=== PATIENT | female | born 1980 | race Caucasian/White ===

== ENCOUNTER 2023-10-16 10:00 | Outpatient (RCR) | payer MEDICAID, SELFPAY ==
[2023-10-02 10:08] VITALS: BP 176/96; PULSE 89; RESP 16; TEMP 36.1; BMI 74.4
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
--- NOTE | 2023-10-11 09:52 | ART_ITS ---
Reason For Study: BLE EDEMA Procedure A bilateral lower extremity continuous wave Doppler with analog waveform analysis,segmental pressures,and ankle brachial indexes without exercise. Left Segmental Pressures Left brachial= 150mmHg. Left posterior tibial artery = >254mmHg. Left dorsalis pedis artery = >254mmHg. Left digit = 130 mmHg. The left posterior tibial artery waveforms are triphasic. The left dorsalis pedis waveforms are triphasic. Right Segmental Pressures Right brachial= 151mmHg. Right posterior tibial artery = >254mmHg. Right dorsalis pedis artery = >254mmHg. Right digit = 99 mmHg. The right posterior tibial artery waveforms are triphasic. The right dorsalis pedis waveforms are triphasic. Indices The right ankle brachial index by the dorsalis pedis is N/C. The right ankle brachial index by the posterior tibial artery is N/C. The right digital-brachial index is 0.66. The left ankle brachial index by the posterior tibial artery is N/C. The left ankle brachial index by the dorsalis pedis is N/C. The left digital-brachial index is 0.86. VL/Lower Ext Art Exam w/o Exercis Interpretation Summary Triphasic Doppler waveforms are noted at ankle level bilaterally. Pulse-volume recordings appear diminished at calf, ankle, and digital levels bilaterally. Resting ankle-brachi al indices could not be determined on either side due to the non-compressibility of the vasculature at ankle level bilaterally. The right digital-brachial index is mildly diminished. The left di gital-brachial index is normal. There is evidence of arterial calcification at ankle level bilaterally. There i s evidence of mild arterial occlusive disease in the right lower extremity. There is no evidence o f significant arterial occlusive disease in the left lower extremity. Ordering Physician: Fran Tran Referring Physician: FRAN TRAN WORKING MANAGER-C Performed By: Raymundo Alan RVT and Student
--- NOTE | 2023-10-11 09:52 | VDLE_ITS ---
Reason For Study: BLE Edema RIGHT LEFT CFV is compressible, spontaneous, phasic, CFV is compressible, spontaneous, phasic, competent and demonstrates normal competent, and demonstrates normal augmentation. augmentation. FV is compressible, spontaneous, phasic, FV is compressible, spontaneous, phasic, competent and demonstrates normal competent and demonstrates normal augmentation. augmentation. POP V is compressible, spontaneous, phasic, POP V is compressible, spontaneous, phasic, competent and demonstrates normal competent and demonstrates normal augmentation. augmentation. T/P Trunk is compressible. T/P Trunk is compressible. PTV is compressible. Unable to visualize PTV and Carmella V. Unable to visualize Carmella V. SFJ is competent and measures 0.95 cm. SFJ is INCOMPETENT and measures 0.88 cm. GSV proximal thigh measures 0.77 x 0.81 cm. GSV proximal thigh measures 0.65 x 0.71 cm. GSV at knee measures 0.59 x 0.65 cm. GSV at knee measures 0.71 x 0.66 cm. GSV is competent throughout. GSV INCOMPETENT throughout for greater than SSV proximal calf is competent and measures 0.5 seconds. 0.35 cm. SSV proximal calf is competent and measures 0.36 x 0.36 cm. Procedure This is a venous duplex using B-mode, color flow and spectral Doppler. Exam performed in department. The exam was diagnostic. Limited views were obtained. The study was technically difficult. VL/Venous Duplex US - Lauri Extrem Interpretation Summary Deep veins of the lower extremities are bilaterally patent and compressible seg mentally. There is no evidence of deep vein thrombosis on either side. Valvular competence appears in tact within the proximal deep venous systems bilaterally. The great saphenous veins appear bila terally patent and compressible segmentally. The right sapheno-femoral junction is incompetent . T he left sapheno- femoral junction is competent . The right great saphenous vein appears segmenta lly incompetent. The left great saphenous vein appears segmentally competent. Small saphenous veins are patent and competent bilaterally. The deep veins of the calf were not visualized on either side. Ordering Physician: Kady Marshall Referring Physician: Anna Marie Cosby Performed By: Raymundo Alan RVT and Student
[2023-10-16 09:57] VITALS: BP 175/94; PULSE 79; RESP 22; TEMP 36.4; BMI 74.4
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
== END 2023-10-31 23:59 | disposition home or self-care (01) ==
LOC: WC 10:00
PROVIDERS: PCP Nurse Practitioner Family; Referring Provider Nurse Practitioner Family; Visit Provider Nurse Practitioner Family
DX: I89.0 Lymphedema, not elsewhere classified (principal); E66.01 Morbid (severe) obesity due to excess calories; Z68.45 Body mass index [BMI] 70 or greater, adult; R60.0 Localized edema; R26.2 Difficulty in walking, not elsewhere classified; B37.2 Candidiasis of skin and nail; L30.4 Erythema intertrigo; M79.89 Other specified soft tissue disorders
CPT/HCPCS: G0463; 93923; 93970; 99204; 99213; 99214

== ENCOUNTER → 2023-10-31 | Outpatient (CLI) | payer MEDICAID, SELFPAY ==
--- NOTE | 2023-10-31 09:12 | BI_ITS ---
MAMMOGRAPHY - BILATERAL SCREENING REASON FOR EXAM: Female, 43 years old. Routine annual screening examination. PERTINENT HISTORY: Non-contributory. TECHNIQUE: Digital bilateral breast zafar (3D mammographic acquisition) in the CC and MLO projections. 2-D mediolateral oblique (MLO) and craniocaudad (CC) views of both breasts were obtained. CAD: Full Field Digital Mammography with Computer Added Detection was performed. COMPARISON: Comparison is made with prior outside examination dated October 15, 2020. FINDINGS: Breast Composition: There are scattered areas of fibroglandular density. There are no dominant masses or suspicious calcifications. No other significant abnormalities are identified. There has been no significant change since the prior study. BI/SCRN MAMM (CAD)W/ZAFAR BILAT IMPRESSION: Stable bilateral screening mammogram. Yearly follow-up mammogram recommended. (A) ASSESSMENT CATEGORY: BIRADS Category 1: Negative. A letter regarding these results will be sent to the patient by the facility within 30 days. Approximately 10% of breast cancers are not detected by mammography. A normal mammogram should not delay biopsy of a clinically suspicious abnormality. [id number] Electronically Signed: Heber Odom MD at 14:36 EDT ,
== END | disposition home or self-care (01) ==
LOC: OPBI 09:10
PROVIDERS: PCP Nurse Practitioner Family; Referring Provider Nurse Practitioner Family; Visit Provider Nurse Practitioner Family
DX: Z12.31 Encounter for screening mammogram for malignant neoplasm of breast (principal)
CPT/HCPCS: 77063; 77067

== ENCOUNTER 2023-12-11 10:14 | Outpatient (RCR) | payer MEDICAID, SELFPAY ==
[2023-11-01 00:09] VITALS: BP 175/94; PULSE 79; RESP 22; TEMP 36.4; BMI 74.4
[2023-12-11 10:02] VITALS: BP 167/88; PULSE 72; RESP 22; TEMP 35.9; BMI 74.4
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
== END 2023-12-13 14:51 | disposition home or self-care (01) ==
LOC: WC 10:14
PROVIDERS: PCP Nurse Practitioner Family; Referring Provider Nurse Practitioner Family; Visit Provider Nurse Practitioner Family
DX: R60.0 Localized edema (principal); E66.01 Morbid (severe) obesity due to excess calories; Z68.45 Body mass index [BMI] 70 or greater, adult; I89.0 Lymphedema, not elsewhere classified; B37.2 Candidiasis of skin and nail; L30.4 Erythema intertrigo
CPT/HCPCS: 99213; G0463

== ENCOUNTER → 2024-09-13 | Outpatient (CLI) | payer MEDICAID, SELFPAY | END | disposition home or self-care (01) | LOC: SL 19:59 | PROVIDERS: PCP Nurse Practitioner Family; Referring Provider Nurse Practitioner Family; Visit Provider Nurse Practitioner Family | DX: G47.10 Hypersomnia, unspecified (principal); E66.01 Morbid (severe) obesity due to excess calories; I10 Essential (primary) hypertension | CPT/HCPCS: 95810 ==

== ENCOUNTER → 2024-10-31 | Outpatient (CLI) | payer MEDICAID, SELFPAY ==
--- NOTE | 2024-10-31 09:52 | BI_ITS ---
EXAM: SCRN MAMM (CAD)W/ZAFAR BILAT DATE: 10/31/2024 CLINICAL HISTORY: F, Age 44 y/o , SCREENING BREAST CANCER RISK ASSESSMENT: Has not been calculated. TECHNIQUE: Bilateral screening digital breast tomosynthesis with 2D and 3D images. Computer aided detection. COMPARISON: Prior exam(s) dated 10/31/2023. FINDINGS: TISSUE DENSITY: The breast tissue is composed of scattered area of fibroglandular density. Bilateral Breast Mammographic Findings: There are no suspicious masses, suspicious clustered microcalcifications, architectural distortion or secondary signs of malignancy identified in either breast. Benign-appearing round microcalcifications are seen in both breasts. BI/SCRN MAMM (CAD)W/ZAFAR BILAT IMPRESSION: OVERALL FINAL ASSESSMENT: BIRADS 2 BENIGN FINDING RECOMMENDATION: Routine annual follow-up in 1 Year A letter with findings and recommendations will be mailed to the patient. Reading Location: [id number]
== END | disposition home or self-care (01) ==
PROVIDERS: PCP Nurse Practitioner Family; Referring Provider Nurse Practitioner Family; Visit Provider Nurse Practitioner Family
DX: Z12.31 Encounter for screening mammogram for malignant neoplasm of breast (principal)
CPT/HCPCS: 77063; 77067

== ENCOUNTER → 2024-11-08 | Outpatient (CLI) | payer MEDICAID, SELFPAY | END | disposition home or self-care (01) | LOC: SL 20:10 | PROVIDERS: PCP Nurse Practitioner Family | DX: G47.33 Obstructive sleep apnea (adult) (pediatric) (principal) | CPT/HCPCS: 95811 ==

== ENCOUNTER → 2025-02-03 | Outpatient (CLI) | payer MEDICAID, SELFPAY ==
[2025-02-03 13:22] LABS: Hematocrit 36.3 % (37-47); Hemoglobin 11.6 g/dL (12.0-15.0); Immature Granulocytes Count 0.010 X10^3/uL (0.0-0.0); Mean Corp Hgb Conc 32.0 g/dL (32-36); Mean Corpuscular Volume 91.9 fL (81-99); Mean Platelet Vol. 9.3 fl (6.2-12.0); NRBC Flagged by Analyzer 0 % (0-5); Platelet Count 386 K/mm3 (150-450); RBC Distribution Width CV 13.2 % (11.6-14.6); RBC Distribution Width SD 44.0 fl (35.1-43.9); Red Blood Count 3.95 M/mm3 (4.2-5.4); White Blood Count 6.1 K/mm3 (4.4-11.0)
[2025-02-03 13:23] LABS: AST(SGOT) 16 U/L (<=31); Alanine Aminotransfer ALT/SGPT 23 U/L (<=34); Albumin, Serum 3.9 g/dL (3.5-5.0); Alkaline Phosphatase 67 U/L (35-104); Anion Gap 11 (5-15); BUN 17 mg/dL (4-19); BUN/Creat Ratio 24.5 RATIO (10-20); Calcium,Total 9.3 mg/dL (7.6-11.0); Carbon Dioxide 22.5 mmol/L (21.0-32.0); Chloride 103 mmol/L (98-108); Cholesterol 198 mg/dL (<=200); Globulin 4.2 g/dL (2.2-4.2); Glucose 100 mg/dL (70-99); Low Density Lipoprotein Calc. 138 mg/dL; Magnesium 2.0 mg/dL (1.5-2.2); Potassium 4.4 mmol/L (3.3-5.1); Triglycerides 69 mg/dL; Very Low Density Lipoprotein 14 mg/dL (5-40); cholesterol:hdl ratio screen 4.25
--- OUTSIDE RECORDS SUMMARY | 2025-02-03 21:22 | XMS RPT_ITS | CCD ---
Author Organization [facility] Care Team Providers Care Cornetist Name Role Phone Linda Godoy Primary Care Provider [phone] GERBER GORDON MD Attending Unavailable GERBER GORDON MD Consulting Unavailable GERBER GORDON MD Primary Care Unavailable GERBER GORDON MD Admitting Unavailable PROVIDER, UNKNOWN Consulting Unavailable PROVIDER, UNKNOWN Consulting Unavailable GERBER GORDON MD Primary Care Unavailable GERBER GORDON MD Admitting Unavailable GERBER GORDON MD Attending Unavailable GERBER GORDON MD Primary Care Unavailable GERBER GORDON MD Admitting Unavailable GERBER GORDON MD Attending Unavailable ARRON CLEMENS MD Attending Unavailable ARRON CLEMENS MD Primary Care Unavailable ERIC CARVALHO Consulting Unavailable ARRON CLEMENS MD Admitting Unavailable PROVIDER, UNKNOWN Consulting Unavailable PROVIDER, UNKNOWN Consulting Unavailable PROVIDER, UNKNOWN Consulting Unavailable ALVERTO LOPEZ Primary Care Unavailable ALVERTO LOPEZ Admitting Unavailable ALVERTO LOPEZ Attending Unavailable MAIA IVAN MD, DR ERIC Strauss Primary Care Physic jaden Linda Godoy MD Primary Care Provider Joanna BANKING SUPERVISOR.CLOTH PACKER, Kady Unavailable Zander COMPOSITION FLOOR LAYER, COMPOSITION FLOOR LAYER-Jakob Thrasher Primary Care Provider Zander COMPOSITION FLOOR LAYER, COMPOSITION FLOOR LAYER-Jakob Thrasher Referring Provider Joanna COMPOSITION FLOOR LAYER, KENNY-Jakob Valero Attending Provider [phone] Joanna COMPOSITION FLOOR LAYER, KENNY-Jakob Valero Other Provider [phone] Joanna COMPOSITION FLOOR LAYER, COMPOSITION FLOOR LAYER-C Kady Valero Referring Provider [phone] ZANDER TAPIA, ANNA MARIE Attending Unava karolyn CARVALHO III, MD, DR ERIC Strauss Primary Care Sandra vailable ZANDER TAPIA, ANNA MARIE Attending Unapolly CARVALHO III, MD, DR ERIC Strauss Primary Care Sandra vailable SAID, MOHEB Attending Unavailable Unavailable Primary Care Provider Unavailabl e REFERRING, PHY WO ID Attending Unavailable MAIA IVAN MD, DR ERIC Strauss Primary Care Sandra vailable Zander COMPOSITION FLOOR LAYER-C, Anna Marie Primary Care Provider Zander COMPOSITION FLOOR LAYER-C, Anna Marie Attending Provider Zander COMPOSITION FLOOR LAYER-C, Anna Marie Referring Provider Stalin COMPOSITION FLOOR LAYER-C, Berenice White Attending Provider Beam COMPOSITION FLOOR LAYER-C, Todburochellen Attending Provider Beam COMPOSITION FLOOR LAYER-C, Aries Referring Provider Stalin COMPOSITION FLOOR LAYER-CBerenice Other Provider Zander COMPOSITION FLOOR LAYER-C, Anna Marie Primary Care Provider Zander COMPOSITION FLOOR LAYER-C, Anna Marie Referring Provider Zander COMPOSITION FLOOR LAYER-C, Anna Marie Attending Provider [facility], [facility] Primary Care UnavailBerenice Flores Consulting Unavailable Beam C, Aries Attending [facility]available [facility] Unavailable [facility] Primary Care Unavailabl e Zander [facility], Anna Marie Attending Unavailabl e Zander [facility], Anna Marie Referring Unavailabl e Zander C, [facility] Primary Care Unavailabl e Zander [facility], Anna Marie Attending Unavailabl e Zander C, Anna Marie Referring Unavailabl e Zander C, [facility] Primary Care UnavailBerenice Flores Attending Unavailable Zander [facility], Anna Marie Referring UnavailBerenice Flores Attending Unavailable [facility], [facility] Referring Unavailabl e Zander C, [facility] Primary Care Unavailabl e Medications Current Medications Medication Drug Class(es) Dates Sig (Normalized) Sig (Original) ibuprofen 200 mg oral capsule (6 sources) Nonsteroidal Anti-inflammatory Drug Start: 10-02-2023 take 2 capsules by mouth every eight hours as needed for pain Ibuprofen 200 mg capsule Active 400 mg PO Q8H as needed for pain October 02, 2023 12:00am Start: 10-02-2023 Ibuprofen caps ule Take 400 mg by mouth. 10/02/2023 Active levothyroxine sodium 0.05 mg oral capsule (8 sources) l-Thyroxine Start: 11-15-2023 take 1 capsule by mouth once daily Levothyroxine 50 mcg capsule Active 50 ug PO DAILY November 15, 2023 12:00am Start: 09-16-2016 Synthroid 100 mcg (0.1 mg) oral tablet Dose : 100 mcg = 1 tab(s), Oral, qDayAC, 0 Refill(s) Start Date: 09/16/16 Status: Ordered Repeat number: 1 take 1 tablet by leana th once daily before breakfast levothyroxine (Synthroid, Levoxyl) 100 MCG tablet Take 100 mcg by mouth every morning (before breakfast). Active lisinopril 10 mg oral tablet (2 sources) Angiotensin Converting Enzyme Inhibitor Start: 10-29-2024 take 1 tablet by mouth once daily Lisinopril 10 mg tablet Active 10 mg PO DAILY October 29, 2024 12:00am Blood pressure nystatin 900026 unt/ml topical cream (7 sources) Polyene Antifungal Start: 12-19-2023 nystatin (Mycostatin) 603638 UNIT/GM powder APPLY POWDER TOPICALLY TO AFFECTED AREA TWICE DAILY UNDER BILATERAL BREAST 12/19/2023 Active Start: 10-04-2023 End: 01-29-2025 Nystatin 100,000 unit/gram c ream Active 1 NMA TOPICAL TWICE A DAY as needed January 29, 2025 11:10am Apply to affected areas twice daily. Start: 10-04-2023 Nystatin Activ e 1 APPLIC TOPICAL TWICE A DAY October 04, 2023 12:00am Apply to affected areas twice daily. Problems Active Problems Problem Classification Problem Date Documented Date Episodic/Chronic Abdominal pain (2 sources) Right upper quadrant pain; Translations: [Right upper quadrant pain] Onset: 08-17-2020 Episodic Anxiety disorders (2 sources) Posttraumatic stress disorder 09-16-2016 Chronic Heart valve disorders (2 sources) Heart murmur; Translations: [Cardiac murmur, unspecified] 01-29-2025 Episodic Mycoses (7 sources) Candidiasis of skin; Translations: [Candidiasis of skin and nail] 10-05-2023 Episodic Other inflammatory condition of skin (5 sources) Intertrigo; Translations: [Erythema intertrigo] 10-05-2023 Episodic Other inflammatory condition of skin (2 sources) Erythema intertrigo; Translations: [Other specified erythematous conditions] 10-31-2023 Episodic Other lower respiratory disease (5 sources) Hypoxemia; Translations: [Hypoxemia] 10-29-2024 Episodic Other nutritional; endocrine; and metabolic disorders (3 sources) Morbid (severe) obesity due to excess calories; Translations: [Morbid obesity] Onset: 09-16-2020 10-31-2023 Chronic Other nutritional; endocrine; and metabolic disorders (2 sources) Obesity 09-16-2016 Chronic Other nutritional; endocrine; and metabolic disorders (9 sources) Morbid obesity; Translations: [Morbid (severe) obesity due to excess calories] 10-05-2023 Chronic Other screening for suspected conditions (not mental disorders or infectious disease) (1 source) Encounter for screening mammogram for malignant neoplasm of breast; Translations: [Encounter for screening mammogram for malignant neoplasm of breast] Onset: 11-05-2024 Episodic Residual codes; unclassified (5 sources) Obstructive sleep apnea syndrome; Translations: [Obstructive sleep apnea (adult) (pediatric)] 10-29-2024 Chronic Residual codes; unclassified (1 source) Obstructive sleep apnea (adult) (pediatric); Translations: [Obstructive sleep apnea (adult) (pediatric)] Onset: 11-13-2024 Chronic Residual codes; unclassified (1 source) Hypersomnia, unspecified; Translations: [Hypersomnia, unspecified] Onset: 09-24-2024 Chronic Residual codes; unclassified (5 sources) Bilateral lower limb edema; Translations: [Localized edema] 10-05-2023 Episodic Residual codes; unclassified (13 sources) Localized edema; Translations: [Lipedema of lower extremity] 10-05-2023 Episodic Thyroid disorders (11 sources) Hypothyroidism, unspecified; Translations: [Hypothyroidism] Onset: 08-17-2020 09-16-2016 Chronic Unclassified (3 sources) SUMMARY Onset: 09-17-2016 09-17-2016 Unclassified (2 sources) New Patient; Translations: [New Patient] Onset: 04-03-2024 Past or Other Problems Problem Classification Problem Date Documented Da te Episodic/Chronic Biliary tract disease (8 sources) Gallstone; Translations: [Acute cholecystitis] Onset: 09-17-2016 Resolved: 09-19-2016 09-19-2016 Episodic Results Test Name Value Interpretation Reference Range Facility Pulmonary Visit Reporton Pulmonary Visit Report [facility] [address] [place] [address] OFFICE VISIT Date of Service: 01/29/25 MR#: [id number] Acct: [id number] Name: MERARI DUEÑAS Rep #: [id number] : 1980 Provider: Berenice Gant NP Age/Sex: 44/F Location: [facility].PMW Status: Signed Assessment and Plan Assessment and Plan (1) Obstructive sleep apnea: Status: Acute Comment: CPAP 15 cm Plan: Patient is using and benefiting from CPAP 15 cm. Her apnea is controlled. I have recommended that she increase compliance with her device with a goal of at least 6 hours nightly average. I have asked her to wash her face prior to placing her mask on at night. She is to work with vendor if her mask becomes uncomfortable to consider a different style FFM. Compliance download at that time with follow-up. (2) Hypoxemia: Status: Acute Plan: Nocturnal oximetry on CPAP 15 cm prior to follow-up. (3) Lipedema of lower extremity: Status: Chronic Plan: Continue to increase compliance with pap device. (4) Morbid obesity with BMI of 70 and over, adult: Status: Acute Plan: Complicates exam, care, plan, prognosis. (5) Cardiac murmur, unspecified: Status: Acute Plan: Identified on today's exam. Follow up with PCP to consider ECHO and further work up. Plan Details Follow Up: 4-6 months (LMR) HPI HPI Comments Details: Patient is a 44-year-old female who presents today for evaluation of obstructive sleep apnea. She is ambulatory and currently on room air. The PSG from September 13, 2024 shows an AHI of 39.2 using the 4% rule and 59.8 using the 3% AASM rule. She has not working outside her home, she is currently disabled. She is a lifelong non-smoker. Her father had sleep apnea. She herself has no history of asthma. She reports that she has bad teeth . She has considered liposuction for lipedema. She reports that she is using her PAP device. She indicates that she is feeling more rested when using the device versus when she does not. She does nap on occasion. She has some dry mouth present. She denies morning headaches. She does try to now sleep in supine positioning, previously she was sleeping in side-lying positioning. She denies nocturia. ESS is 4 today. Sh She does not report shortness of breath or cough or wheeze. She denies chest pain chest tightness shortness of breath. She denies fever, chills, body aches. She gets tired when she takes a shower. She has fatigue. She needs to lay down and rest for 10-20 minutes. Documentation reviewed with patient today includes: Titration PSG from November 08, 2024 recommends a trial of CPAP 15 cm Compliance download from January 27, 2025 for the last 30 days shows 100% compliance with therapy, using the device 5 hours and 32 minutes nightly average. She is using CPAP 15 cm. There is air leak identified. AHI is 2.9. Intake Vital Signs 10/29/24 07:50 01/29/25 08:34 Height 5 ft 10 in 5 ft 10 in Weight: 550 lb BMI 78.9 BP 126/77 H Blood Pressure Location Rt radial Position Sitting Respiration 20 H Pulse 83 Pulse Source Monitor Temp 97.4 F L Temperature Source Temporal Artery Pulse Oximetry (%) 96 Oxygen Delivery Method room air Intake Visit Reasons: 3 M FU Compliance Specialist Required: No DME Vendor: [employer] Accompanied by: Self Is patient in pain?: No Allergies No Known Allergies Allergy (Verified 01/29/25 11:10) Medications ???Medication ???Instructions ???Recorded ???Confirmed ???Type ibuprofen 200 mg capsule 400 mg PO Q8H PRN pain 10/02/23 History levothyroxine 50 mcg capsule 50 mcg PO DAILY 11/15/23 01/29/25 History lisinopril 10 mg tablet 10 mg PO DAILY Blood pressure 10/0201/29/25 History nystatin 100,000 unit/gram topical 1 applic topical BID PRN 5 History cream PFSH Medical History Hypothyroidism Surgical History H/O dilation and curettage History of delivery Family History Father Diabetes Heart disease Hypertension Bipolar 1 disorder Mother Diabetes Hypertension COPD (chronic obstructive pulmonary disease) Social History household members: significant other number of children: 2 current occupational status: unemployed and disabled Smoking Status: Never smoker alcohol intake: never substance use type: does not use what type of physical activity do you participate in: none Questionnaire Chase Sleepiness Scale Chase Sleepiness Scale Sitting and readin = Slight chance of dozing Watching TV: 1 = Slight chance of dozing Sitting inactive in public places such as t (more content not included)... Normal [facility] SCRN MAMM (CAD)W/ZAFAR BILATo n 10-31-2024 SCRN MAMM (CAD)W/ZAFAR BILAT [facility] Imaging Services [address] [place] [address] SCRN MAMM (CAD)W/ZAFAR BILAT MR#: [id number] Acct: [id number] Name: MERARI DUEÑAS Rep #: [id number] : 1980 F 44 From: Marjan Yung PCP: SACHI Curran, COMPOSITION FLOOR LAYER-C Status: REG CLI Study: SCRN MAMM (CAD)W/ZAFAR BILAT Date of Exam: 07/27 Exam# [id number] Ordering Dr: Anna Marie Cosby COMPOSITION FLOOR LAYER-C EXAM: SCRN MAMM (CAD)W/ZAFAR BILAT DATE: 10/31/2024 CLINICAL HISTORY: F, Age 44 y/o , SCREENING BREAST CANCER RISK ASSESSMENT: Has not been calculated. TECHNIQUE: Bilateral screening digital breast tomosynthesis with 2D and 3D images. Computer aided detection. COMPARISON: Prior exam(s) dated 10/31/2023. FINDINGS: TISSUE DENSITY: The breast tissue is composed of scattered area of fibroglandular density. Bilateral Breast Mammographic Findings: There are no suspicious masses, suspicious clustered microcalcifications, architectural distortion or secondary signs of malignancy identified in either breast. Benign-appearing round microcalcifications are seen in both breasts. BI/SCRN MAMM (CAD)W/ZAFAR BILAT IMPRESSION: OVERALL FINAL ASSESSMENT: BIRADS 2 BENIGN FINDING RECOMMENDATION: Routine annual follow-up in 1 Year A letter with findings and recommendations will be mailed to the patient. Reading Location: [facility] CC: [facility] MERLYN Cosby Weather Anchor: Signed Normal [facility] Pulmonary Visit Reporton Pulmonary Visit Report [facility] [address] [place] [address] OFFICE VISIT Date of Service: 10/29/24 MR#: [id number] Acct: [id number] Name: MERARI DUEÑAS Rep #: [id number] : 1980 Provider: Berenice Gant NP Age/Sex: 44/F Location: [facility].PMW Status: Signed Assessment and Plan Assessment and Plan (1) Obstructive sleep apnea: Status: Acute Plan: Due to the severity of the obstructive sleep apnea with associated hypoxemia I have recommended that the patient undergo a titration study at this time. The pathophysiology of obstructive sleep apnea was reviewed at length with patient today. Understands importance for treating sleep apnea. I have recommended a follow-up in 3 months for which the patient will have had a titration study and will be set up on PAP therapy. I recommended compliance download at that time with follow-up. (2) Hypoxemia: Status: Acute Plan: Await response to treatment with PAP therapy, consider nocturnal oximetry on follow-up. (3) Lipedema of lower extremity: Status: Chronic Plan: The patient is carrying a higher risk for obstructive sleep apnea with this diagnosis. There is correlation between these disease processes. (4) Morbid obesity with BMI of 70 and over, adult: Status: Acute Plan: Complicates exam, care, plan, prognosis. Orders: Orders Polysomnography with PAP Today G47.33 - Obstructive sleep apnea (adult) (pediatric) Plan Details Follow Up: 3 Months (LMR) HPI HPI Comments Details: Patient is a 44-year-old female who presents today for evaluation of obstructive sleep apnea. She is ambulatory and currently on room air. She underwent a PSG due to complaints of hypersomnia, snoring, witnessed gasping for air. Her STOP- BANG was 6. She does follow with Anna Marie Cosby as her PCP. Comorbid conditions include lipedema, morbid obesity, hypothyroidism. The PSG from September 13, 2024 shows an AHI of 39.2 using the 4% rule and 59.8 using the 3% AASM roll. Also with no was a mean oxyhemoglobin saturation during the study at 90% and 48.6 minutes below 88%. She has not working outside her home, she is currently disabled. She is a lifelong non-smoker. Her father had sleep apnea. She herself has no history of asthma. She reports that she has bad teeth . She has consider liposuction for lipedema. She does sleep in side-lying positioning. She goes to bed at 11 PM and awakens at 5 AM to get her daughter ready for school. She will then go back to sleep for a few hours in the morning. ESS is 5 today. She does not report shortness of breath or cough or wheeze. She denies chest pain chest tightness shortness of breath. She denies fever, chills, body aches. Intake Vital Signs 10/02/23 10:08 10/29/24 07:50 Height 5 ft 10 in 5 ft 10 in Weight: 545 lb BMI 78.2 BP 120/76 Blood Pressure Location Rt radial Position Sitting Respiration 20 H Pulse 79 Pulse Source Monitor Temp 97.2 F L Temperature Source Temporal Artery Pulse Oximetry (%) 99 Oxygen Delivery Method room air Intake Visit Reasons: Sleep problems Chief Complaint: establish care Compliance Specialist Required: No DME Vendor: n/a Accompanied by: Is patient in pain?: No Allergies No Known Allergies Allergy (Verified 10/29/24 11:15) Medications ???Medication ???Instructions ???Recorded ???Confirmed ???Type ibuprofen 200 mg capsule 400 mg PO Q8H PRN pain 10/02/23 History nystatin 100,000 unit/gram topical 1 applic topical BID 14 days #30 10/04/23 10/29/24 Rx cream grams levothyroxine 50 mcg capsule 50 mcg PO DAILY 11/15/23 10/29/24 History lisinopril 10 mg tablet 10 mg PO DAILY Blood pressure 10/0210/29/24 History PFSH Medical History Hypothyroidism Surgical History H/O dilation and curettage History of delivery Family History Father Diabetes Heart disease Hypertension Bipolar 1 disorder Mother Diabetes Hypertension COPD (chronic obstructive pulmonary disease) Social History (Updated 10/29/24 @ 11:19 by Estelle Bragg) household members: significant other number of children: 2 current occupational status: unemployed and disabled Smoking Status: Never smoker alcohol intake: never substance use type: does not use what type of physical activity do you participate in: none Review of Systems Resp Respiratory: Yes as per HPI Exam Const Constitutional: Positive conversant, cooperative, in no acute respiratory distress and obese (Morbid); Negative ill appearing Head Head: Yes normocephalic and Yes atraumatic Eyes Eye: Positive clear conjunctiva (more content not included)... Normal [facility] XR KNEE 1 OR 2 VIEWS RIGHTon 08-05-2024 XR KNEE 1 OR 2 VIEWS RIGHT ORIGINAL EXAMINATION: XR right knee AP and cross-table lateral two views 08/02/2024 1:12 pm COMPARISON: None HISTORY: ORDERING SYSTEM PROVIDED HISTORY: Reason for Exam: RIGHT KNEE PAIN, FINDINGS: No acute fracture, dislocation, lytic process or periosteal reaction is seen in the visualized bones and joints. No erosive type of arthritis. No periarticular soft tissue calcification. There is early osteoarthritis without joint space narrowing or significant joint effusion. IMPRESSION: No acute skeletal abnormality is seen. . Early osteoarthritis. Interpreted by: Simeon Marrero MD Preliminary Report By: Simeon Marrero MD Electronically signed By Simeon Marrero MD Dictated Date: 08/05/2024 3:44:36 PM Prelim Date: 08/05/2024 3:44:59 PM Sign Date: 08/05/2024 3:44:59 PM Ordering Provider: NISREEN REFERRING [facility] Office Visiton 04-03-2024 Follow-up visit [id number] Ashlee Dueñas 1980 F Date Provider Department Center 04/03/2024 [id number] None No family history on file Level of Service:09374 [place] OFFICE/OUTPATIENT NEW MODERATE MDM 45 MINUTES Reason for Visit and Comments: New Patient [542] - Lymphedema [facility] Progress Noteon 04-03-2024 Progress Note Department of Plasti c Surgery - Adult Attending Consult Note Reason for Consult: Severe lipedema Requesting Physician: Self-referral CHIEF COMPLAINT: Morbid obesity with severe lipedema History Obtained From: patient HISTORY OF PRESENT ILLNESS: The patient is a 43 y.o. female who presents with significant history of morbid obesity with a current Body mass index is 78.63 kg/m?. Patient is presenting with extensive lipedema involving bilateral buttock area and the entire bilateral lower extremity which imposing significant weight burden on the patient causing bilateral knee and hip pain as well as lower back pain. This is also affecting her ability to walk and exercise. Patient is presenting today seeking surgical intervention in the form of liposuction/excision of her lipedema tissue of the bilateral thigh which is the area of current concern. Past Medical History: Past Medical History: Diagnosis Date Hypothyroidism Lipedema Past Surgical History: Past Surgical History: Procedure Laterality Date SECTION, CLASSIC x2 DILATION AND CURETTAGE OF UTERUS missed AB Current Medications: Current Outpatient Medications Medication Instructions Ibuprofen 400 mg, Oral levothyroxine (SYNTHROID, LEVOXYL) 100 mcg, Oral, Daily before breakfast nystatin (Mycostatin) 109595 UNIT/GM powder APPLY POWDER TOPICALLY TO AFFECTED AREA TWICE DAILY UNDER BILATERAL BREAST Allergies: Patient has no known allergies. Social History: Social History Socioeconomic History Marital status: Life Partner Spouse name: Not on file Number of children: Not on file Years of education: Not on file Highest education level: Not on file Occupational History Not on file Tobacco Use Smoking status: Never Smokeless tobacco: Never Substance and Sexual Activity Alcohol use: Never Drug use: Not on file Sexual activity: Not on file Other Topics Concern Not on file Social History Narrative Not on file Social Determinants of Health Financial Resource Strain: Not on file Food Insecurity: Not on file Transportation Needs: Not on file Physical Activity: Not on file Stress: Not on file Social Connections: Not on file Intimate Partner Violence: Not on file Housing Stability: Not on file Family History: No family history on file. REVIEW OF SYSTEMS: CONSTITUTIONAL: negative for fevers, chills, sweats and fatigue EYES: negative for dipolpia or acute vision loss. RESPIRATORY: negative for dry cough, cough with sputum, dyspnea, wheezing and chest pain CARDIOVASCULAR: negative for chest pain, dyspnea, palpitations, syncope GASTROINTESTINAL: negative for nausea, vomiting, change in bowel habits, diarrhea, constipation and abdominal pain EXTREMITIES: negative for edema MUSCULOSKELETAL: negative for muscle weakness SKIN: negative for itching or rashes. BEHAVIOR/PSYCH: negative for poor appetite, increased appetite, decreased sleep and poor concentration PHYSICAL EXAM: VITALS: BP 136/83 Pulse 71 Wt (!) 548 lb (249 kg) CONSTITUTIONAL: awake, alert, cooperative, no apparent distress, and appears stated age EYES: PERRLA, EOMI, no signs of occular infection LUNGS: No increased work of breathing, good air exchange, clear to auscultation bilaterally, no crackles or wheezing CARDIOVASCULAR: Normal apical impulse, regular rate and rhythm, normal S1 and S2, no S3 or S4, and no murmur noted ABDOMEN: Soft, nontender nondistended. Severe lipedema affecting bilateral buttock, bilateral thigh and leg area with secondary lymphedema, stage II. EXTREMITIES: no signs of clubbing or cyanosis. MUSCULOSKELETAL: negative for flaccid muscle tone or spastic movements. SKIN: gross examination reveals no signs of rashes, or diaphoresis. NEURO: Cranial nerves II-XII grossly intact. No signs of agitated mood. CBC: No results found for: WBC, RBC, HGB, HCT, MCV, MCH, MCHC, RDW, PLT, MPV BMP: No results found for: NA, K, CL, CO2, BUN, CREATININE, CALCIUM, LABGLOM, GLUCOSE, GLU Hepatic Function Panel: No results found for: ALKPHOS, ALT, AST, PROT, BILITOT, BILIDIR Data- Radiology Review: Not applicable IMPRESSION/RECOMMENDAT IONS: Diagnosis: 1-morbid obesity 2-severe bilateral lower extremity lipedema The Patients EMR report has been reviewed Treatment of patient's lipedema and hence secondary lymphedema is mainly by targeting her morbid obesity. Patient needs extensive weight loss which can be achieved with 1-dietary modification by limiting caloric intake, having 3 balanced meals yet limiting the amount significantly 2-exercise, concentrating on endurance/muscle building exercises in the form of weightlifting, biking against resistance and walking uphill against resistance 3-considering weight loss surgery. If the patient happens to achieve significant weight loss, she will develop severe acquired generalized lipod (more content not included)... Normal [facility] FT4on 01-22-2024 Free T4 [Mass/Vol] 0.94 ng/dL Normal 0.76-1.46 [facility] ([place]) Comment on above: Performed By: #### F T4, TSH #### [facility] [address] [address] HIGH RISK HUMAN PAPILLOMA DIANA (HPV), PCR FOR DETECTION AND GENOTYPINGon 01-22-2024 HPV 16 Ag Ql (Unsp spec) Not detected Normal Not detected [facility] Comment on above: Order Comment: Speci men Type: FLUID SPECIMEN Ordering Facility: [facility] Address: [address] [place] [address] Performed By: #### L [id number], HPVHRT #### [facility] CLIA [id number] [address] [place] [address] [place] HPV 18 Ag Ql (Unsp spec) Not detected Normal Not detected [facility] Comment on above: Order Comment: Speci men Type: FLUID SPECIMEN Ordering Facility: [facility] Address: [address] [place] [address] Performed By: #### L [id number], HPVHRT #### [facility] CLIA [id number] [address] [place] [address] [place] HPV 31+33+35+39+45+51+52+ 56+58+59+66+68 DNA MARYSOL+probe Ql (Cvx) Not detected Normal Not detected [facility] Comment on above: Order Comment: Speci men Type: FLUID SPECIMEN Ordering Facility: [facility] Address: [address] [place] [address] Result Comment: High Risk HPV Other Type includes HPV types 31, 33, 35, 39, 45, 51, 52, 56, 58, 59, 66 and 68. Performed By: #### L [id number], HPVHRT #### [facility] CLIA [id number] [address] [place] [address] [place] PAP TESTon 01-22-2024 ADEQUACY Satisfactory for interpretation. Normal [facility] Comment on above: Order Comment: Speci men Type: FLUID SPECIMEN Ordering Facility: [facility] Address: [address] [place] [address], [place] [address] Performed By: #### L [id number], HPVHRT #### [facility] CLIA [id number] [address] [place] [address] [place] CASE REPORT Normal [facility] Comment on above: Order Comment: Speci men Type: FLUID SPECIMEN Ordering Facility: [facility] Address: [address] [place] [address], [place] [address] Result Comment: Gyne cologic Cytology Report Case: [id number] Authorizing Provider: Anna Marie Cosby NP Collected: 01/22/2024 11:30 AM Ordering Location: [facility] Received: 01/23/2024 07:54 AM [facility] First Screen: Lisset, Liss, CT, ASCP Specimen: Pap Test, ThinPrep, Cervix Performed By: #### L [id number], HPVHRT #### [facility] CLIA [id number] [address] [place] [address] [place] CLINICAL HISTORY, CYTOLOGY, WINDOWS CONSULTANT Routine Exam Normal [facility] Comment on above: Order Comment: Speci men Type: FLUID SPECIMEN Ordering Facility: [facility] Address: [address] [place] [address], [place] [address] Result Comment: Prev ious pap=10/23/2023 w/ inconclusive result Performed By: #### L [id number], HPVHRT #### [facility] CLIA [id number] [address] [place] [address] [place] FINAL PERFORMING LAB Normal [facility] Comment on above: Order Comment: Speci men Type: FLUID SPECIMEN Ordering Facility: [facility] Address: [address] [place] [address], [place] [address] Result Comment: Tech nical component, wind turbine technician screening performed at [facility] [address] CLIA# [id number] Diagnostic interpretation performed at [facility], [address] [facility] [address] CLIA# [id number] Silviculture Professor: Kong Chavira M.D. Performed By: #### L [id number], HPVHRT #### [facility] CLIA [id number] [address] [place] [address] [place] HPV REFLEX Yes HPV Normal [facility] Comment on above: Order Comment: Speci men Type: FLUID SPECIMEN Ordering Facility: [facility] Address: [address] [place] [address], [place] [address] Performed By: #### L [id number], HPVHRT #### [facility] CLIA [id number] [address] [place] [address] [place] INTERPRETATION, CYTOLOGY, WINDOWS CONSULTANT Normal [facility] Comment on above: Order Comment: Speci men Type: FLUID SPECIMEN Ordering Facility: [facility] Address: [address] [place] [address] Result Comment: Nega tive for intraepithelial lesion or malignancy. Performed By: #### L [id number], HPVHRT #### [facility] CLIA [id number] [address] [place] [address] [place] LMP [December 2023 Normal [facility] Comment on above: Order Comment: Speci men Type: FLUID SPECIMEN Ordering Facility: [facility] Address: [address] [place] [address] Performed By: #### L [id number], HPVHRT #### [facility] CLIA [id number] [address] [place] [address] [place] PAP DISCLAIMER COMMENT The Pap Smear is a screening test for cervical cancer. False negative results occur with all screening tests, emphasizing the need for rescreening at recommended intervals, and clinical correlation. Normal [facility] Comment on above: Order Comment: Speci men Type: FLUID SPECIMEN Ordering Facility: [facility] Address: [address] [place] [address] Performed By: #### L [id number], HPVHRT #### [facility] CLIA [id number] [address] [place] [address] PAP REGIONAL ENGINEER COMMENT This specimen has be en analyzed by the ThinPrep Imaging System, an automated imaging and review system, which assists the laboratory in evaluating cells on ThinPrep Pap tests. Following automated imaging, selected evans from every slide are reviewed by a wind turbine technician. Normal [facility] Comment on above: Order Comment: Speci men Type: FLUID SPECIMEN Ordering Facility: [facility] Address: [address] [place] [address], [place] [address] Performed By: #### L [id number], HPVHRT #### [facility] CLIA [id number] [address] [place] [address] OF [facility] TSHon 01-22-2024 TSH Qn 3.32 m[IU]/L Normal 0.36-3.74 [facility] ([place]) Comment on above: Performed By: #### F T4, TSH #### [facility] [id number] [place] [address] 11-01-2023 CNPN Telephone (CARDMN) MERARI DUEÑAS ([id number]) 1980 F Date Time Provider Department 11/01/23 OMAYRA GONZALEZ ([facility]) CARDMN During your visit today, we recorded the following information about you: Omayra Ryan 11/01/2023 4:55 PM Signed RP 1ST CALL. Patient is seeking care locally with Dr. Castro. Case closed. Allergies As of Date: 11/01/2023 (No Known Allergies) Date Reviewed: 09/19/2016 Reviewed by: Ella Saxena (Rn), RN - Fully Assessed Reason for Visit: Appointment [186] Prescriptions as of 11/01/2023 - levothyroxine (SYNTHROID) 100 mcg tablet Take 100 mcg by mouth daily before breakfast. Problem List As Of Date 11/01/2023 Noted Resolved Choledocholithiasis [K80.50] 09/17/2016 09/19/2016 SUMMARY 09/17/2016 Calculus of gallbladder without cholecystitis [*09/19/2016 Encounter Status:Closed by OMAYRA RYAN on 11/01/23 [facility] 10-27-2023 [facility] Telephone (REFPHY) DUEÑASMERARI ROSE ([id number]) 1980 F Date Time Provider Department 10/27/23 NO ONE (HISTORICAL) REFPHY During your visit today, we recorded the following information about you: Asher Denton 10/27/2023 6:14 AM Signed Patient: Merari Dueñas Date of : 1980 Patient phone number: [phone] Referring Provider for the encounter: Kady Marshall [phone] Fax - [phone] Requesting Provider: Dr Bowers / Vascular Reason for requesting visit (RFV/signs and symptoms/diagnosis): Lymphedema, both lower legs Person calling: caregiver: ZHAO Return call to: PATIENT Medical Records/Insurance Card scanned into 2Checkout: No Comments: Received via fax Allergies As of Date: 10/27/2023 (No Known Allergies) Date Reviewed: 09/19/2016 Reviewed by: Ella Saxena (Rn), RN - Fully Assessed Reason for Visit: External Referrals/resources [909] Prescriptions as of 10/27/2023 - levothyroxine (SYNTHROID) 100 mcg tablet Take 100 mcg by mouth daily before breakfast. Problem List As Of Date 10/27/2023 Noted Resolved Choledocholithiasis [K80.50] 09/17/2016 09/19/2016 SUMMARY 09/17/2016 Calculus of gallbladder without cholecystitis [*09/19/2016 Encounter Status:Closed by ASHER DENTON on 10/27/23 Normal [facility] PAP TESTon 10-23-2023 ADEQUACY Normal [facility] Comment on above: Order Comment: Speci men Type: FLUID SPECIMEN Ordering Facility: [facility] Address: [address] [place] [address] Result Comment: Unsa tisfactory for evaluation. Limited cellularity due to acellular background material Performed By: #### L [id number] #### [facility] CLIA [id number] [address] [place] [address] [place] CASE REPORT Normal [facility] Comment on above: Order Comment: Speci men Type: FLUID SPECIMEN Ordering Facility: [facility] Address: [address] [place] [address] Result Comment: Gyne cologic Cytology Report Case: [id number] Authorizing Provider: Anna Marie Cosby NP Collected: 10/23/2023 10:40 AM Ordering Location: [facility] Received: 10/25/2023 09:36 AM [facility] First Screen: Ana Rodriguez, CT, ASCP Rescreen: Mesha Akers, CT, ASCP Specimen: Pap Test, ThinPrep, Cervix Performed By: #### L [id number] #### [facility] CLIA [id number] [address] [place] [address] [place] CLINICAL HISTORY, CYTOLOGY, WINDOWS CONSULTANT Routine Exam Normal [facility] Comment on above: Order Comment: Speci men Type: FLUID SPECIMEN Ordering Facility: [facility] Address: [address] [place] [address], [place] [id number] Result Comment: Prev Pap Date: 2018 Result--Normal Performed By: #### L [id number] #### [facility] CLIA [id number] [address] [place], [place] [address] [place] FINAL PERFORMING LAB Normal [facility] Comment on above: Order Comment: Speci men Type: FLUID SPECIMEN Ordering Facility: [facility] Address: [address] [place] [address] Result Comment: Tech nical component, wind turbine technician screening performed at [facility] [address] CLIA# [id number] Diagnostic interpretation performed at [facility] [address] CLIA# [id number] Silviculture Professor: Kong Chavira M.D. Performed By: #### L [id number] #### [facility] CLIA [id number] [address] [place], [place] [address] [place] HPV REFLEX HPV if Atypical Normal [facility] Comment on above: Order Comment: Speci men Type: FLUID SPECIMEN Ordering Facility: [facility] Address: [address] [place] [address] Performed By: #### L [id number] #### [facility] CLIA [id number] [address] [place], [place] [address] [place] INTERPRETATION, CYTOLOGY, WINDOWS CONSULTANT Normal [facility] Comment on above: Order Comment: Speci men Type: FLUID SPECIMEN Ordering Facility: [facility] Address: [address] [place] [address] Result Comment: Unab le to perform interpretation due to unsatisfactory specimen. Performed By: #### L [id number] #### [facility] CLIA [id number] [address] [place] [address] [place] LMP 09/15/2023 Normal [facility] Comment on above: Order Comment: Speci men Type: FLUID SPECIMEN Ordering Facility: [facility] Address: [address] [place] [address] Performed By: #### L [id number] #### [facility] CLIA [id number] [address] [place] [address] [place] PAP DISCLAIMER COMMENT The Pap Smear is a screening test for cervical cancer. False negative results occur with all screening tests, emphasizing the need for rescreening at recommended intervals, and clinical correlation. Normal [facility] Comment on above: Order Comment: Speci men Type: FLUID SPECIMEN Ordering Facility: [facility] Address: [address] [place] [address] Performed By: #### L [id number] #### [facility] CLIA [id number] [address] [place] [address] [place] PAP REGIONAL ENGINEER COMMENT This specimen has be en analyzed by the ThinPrep Imaging System, an automated imaging and review system, which assists the laboratory in evaluating cells on ThinPrep Pap tests. Following automated imaging, selected evans from every slide are reviewed by a wind turbine technician. Normal [facility] Comment on above: Order Comment: Speci men Type: FLUID SPECIMEN Ordering Facility: [facility] Address: [address] [place] [address], [place] [address] Performed By: #### L [id number] #### [facility] CLIA [id number] [address] [place] [address] [place] VIDDHon 09-22-2023 Vit D 125 di-OH 81.6 pg/mL High 24.8-81.5 [facility] ([place]) Comment on above: Result Comment: Perf ormed At: [facility] [address] [id number] Johnie Lucas MD Ph:[phone] Performed By: #### F T4, TSH #### [address] [address] .Auto DiffOrdered By: SYSTEM SYSTEM on 09-19-2023 Basophil, Absolute 0.0 103/mcL Normal 0.0-0.2 AO Wo rkflow SS Comment on above: Performed By: #### C BC, FT3, FT4, GFR, LIPID, CMP, ANEU, ADIFF, [id number], TSH #### [address] [address] Basophils/100 WBC (Bld) 0.5 % Normal 0.0-2.5 AO Workflow SS Comment on above: Performed By: #### C BC, FT3, FT4, GFR, LIPID, CMP, ANEU, ADIFF, [id number], TSH #### [address] [address] Eosinophil, Absolute 0.2 103/mcL Normal 0.0-0.4 AO Workflow SS Comment on above: Performed By: #### C BC, FT3, FT4, GFR, LIPID, CMP, ANEU, ADIFF, [id number], TSH #### [address] [address] Eosinophils/100 WBC (Bld) 2.1 % Normal 0.0-7.0 AO Workflow SS Comment on above: Performed By: #### C BC, FT3, FT4, GFR, LIPID, CMP, ANEU, ADIFF, [id number], TSH #### [address] [address] Lymphocyte, Absolute 2.5 103/mcL Normal 0.8-3.9 AO Workflow SS Comment on above: Performed By: #### C BC, FT3, FT4, GFR, LIPID, CMP, ANEU, ADIFF, [id number], TSH #### [address] [address] Lymphocytes/100 WBC (Bld) 29.6 % Normal 10.0-50.0 AO Workflow SS Comment on above: Performed By: #### C BC, FT3, FT4, GFR, LIPID, CMP, ANEU, ADIFF, [id number], TSH #### [address] [address] Monocyte, Absolute 0.6 103/mcL Normal 0.2-1.0 AO Wo rkflow SS Comment on above: Performed By: #### C BC, FT3, FT4, GFR, LIPID, CMP, ANEU, ADIFF, [id number], TSH #### [address] [address] Monocytes/100 WBC (Bld) 7.2 % Normal 1.7-13.0 AO Workflow SS Comment on above: Performed By: #### C BC, FT3, FT4, GFR, LIPID, CMP, ANEU, ADIFF, [id number], TSH #### [address] [address] Neutrophils/100 WBC (Bld) 60.6 % Normal 37.0-80.0 AO Workflow SS Comment on above: Performed By: #### C BC, FT3, FT4, GFR, LIPID, CMP, ANEU, ADIFF, [id number], TSH #### [address] [address] .GFRon 09-19-2023 GFR Non- 96 ml/min/1.73sqm Normal [facility] ([place]) Comment on above: Result Comment: GFR Population mean for , Non- Americans Ages 20-29 = 116 mL/min/1.73 sq.m. Ages 30-39 = 107 mL/min/1.73 sq.m. Ages 40-49 = 99 mL/min/1.73 sq.m. Ages 50-59 = 93 mL/min/1.73 sq.m. Ages 60-69 = 85 mL/min/1.73 sq.m. Ages 70+ = 75 mL/min/1.73 sq.m. Chronic Kidney Disease: Less than 60 mL/min/1.73 square meters End Stage Renal Disease: Less than 15 mL/min/1.73 square meters Performed By: #### C BC, FT3, FT4, GFR, LIPID, CMP, ANEU, ADIFF, [id number], TSH #### [address] [address] GFR 116 ml/min/1.73sqm Normal [facility] ([place]) Comment on above: Result Comment: GFR Population mean for , Non- Americans Ages 20-29 = 116 mL/min/1.73 sq.m. Ages 30-39 = 107 mL/min/1.73 sq.m. Ages 40-49 = 99 mL/min/1.73 sq.m. Ages 50-59 = 93 mL/min/1.73 sq.m. Ages 60-69 = 85 mL/min/1.73 sq.m. Ages 70+ = 75 mL/min/1.73 sq.m. Chronic Kidney Disease: Less than 60 mL/min/1.73 square meters End Stage Renal Disease: Less than 15 mL/min/1.73 square meters Performed By: #### C BC, FT3, FT4, GFR, LIPID, CMP, ANEU, ADIFF, [id number], TSH #### [address] [address] .NEUABSOrdered By: SYSTEM SY STEM on 09-19-2023 Neutrophil, Absolute 5.1 103/mcL Normal 2.9-6.2 AO Workflow SS Comment on above: Performed By: #### C BC, FT3, FT4, GFR, LIPID, CMP, ANEU, ADIFF, [id number], TSH #### [address] [address] CBCOrdered By: Ameibo SYSTEM on 09-19-2023 Erythrocyte distribution width (RBC) [Ratio] 13.7 % Normal 11.5-14.5 AO Workflow SS Comment on above: Performed By: #### C BC, FT3, FT4, GFR, LIPID, CMP, ANEU, ADIFF, [id number], TSH #### [address] [address] Hematocrit (Bld) [Volume fraction] 36.7 % Low 37.0-47.0 AO Workflow SS Comment on above: Performed By: #### C BC, FT3, FT4, GFR, LIPID, CMP, ANEU, ADIFF, [id number], TSH #### [address] [address] MCH (RBC) [Entitic mass] 30.7 pg Normal 27.0-31.2 AO Workflow SS Comment on above: Performed By: #### C BC, FT3, FT4, GFR, LIPID, CMP, ANEU, ADIFF, [id number], TSH #### [address] [address] MCHC 34.9 G/dL Normal 33.0-37.0 AO Workflow SS Comment on above: Performed By: #### C BC, FT3, FT4, GFR, LIPID, CMP, ANEU, ADIFF, [id number], TSH #### [address] [address] MCV (RBC) [Entitic vol] 88.0 fL Normal 80.0-94.0 AO Workflow SS Comment on above: Performed By: #### C BC, FT3, FT4, GFR, LIPID, CMP, ANEU, ADIFF, [id number], TSH #### [address] [address] Platelet mean volume (Bld) [Entitic vol] 7.1 fL Low 7.4-10.4 AO Workflow SS Comment on above: Performed By: #### C BC, FT3, FT4, GFR, LIPID, CMP, ANEU, ADIFF, [id number], TSH #### [address] [address] CBCon 09-19-2023 Hgb 12.8 G/dL Normal 12.0-16.0 [facility] ([place]) Comment on above: Performed By: #### C BC, FT3, FT4, GFR, LIPID, CMP, ANEU, ADIFF, [id number], TSH #### [address] [address] Platelet 387 10 3/mcL Normal 130-400 [facility] ([place]) Comment on above: Performed By: #### C BC, FT3, FT4, GFR, LIPID, CMP, ANEU, ADIFF, [id number], TSH #### [address] [address] RBC 4.17 10 6/mcL Low 4.20-5.40 [facility] ([place]) Comment on above: Performed By: #### C BC, FT3, FT4, GFR, LIPID, CMP, ANEU, ADIFF, [id number], TSH #### [address] [address] WBC 8.4 10 3/mcL Normal 4.6-10.8 [facility] ([place]) Comment on above: Performed By: #### C BC, FT3, FT4, GFR, LIPID, CMP, ANEU, ADIFF, [id number], TSH #### [address] [address] CMPon 09-19-2023 Albumin Level 3.2 G/dL Low 3.5-5.0 [facility] ([place]) Comment on above: Performed By: #### C BC, FT3, FT4, GFR, LIPID, CMP, ANEU, ADIFF, [id number], TSH #### [address] [address] ALT [Catalytic activity/Vol] 27 U/L Normal 14-59 [facility] ([place]) Comment on above: Performed By: #### C BC, FT3, FT4, GFR, LIPID, CMP, ANEU, ADIFF, [id number], TSH #### [address] [address] AST [Catalytic activity/Vol] 13 U/L Normal 10-40 [facility] ([place]) Comment on above: Performed By: #### C BC, FT3, FT4, GFR, LIPID, CMP, ANEU, ADIFF, [id number], TSH #### [address] [address] Bili Total 0.7 mg/dL Normal 0.2-1.0 [facility] ([place]) Comment on above: Result Comment: Use of this assay is not recommended for patients undergoing treatment with eltrombopag due to the potential for falsely elevated results. Performed By: #### C BC, FT3, FT4, GFR, LIPID, CMP, ANEU, ADIFF, [id number], TSH #### [address] [address] BUN/Creatinine Ratio 24 ratio Normal 7-27 [facility] ([place]) Comment on above: Performed By: #### C BC, FT3, FT4, GFR, LIPID, CMP, ANEU, ADIFF, [id number], TSH #### [address] [address] Total Protein 7.7 G/dL Normal 6.4-8.2 [facility] ([place]) Comment on above: Performed By: #### C BC, FT3, FT4, GFR, LIPID, CMP, ANEU, ADIFF, [id number], TSH #### [address] [address] CMPOrdered By: SYSTEM SYSTEM on 09-19-2023 Albumin/Globulin [Mass ratio] 0.7 {ratio} Low 1.1-2.5 AO ADM SS Comment on above: Performed By: #### C BC, FT3, FT4, GFR, LIPID, CMP, ANEU, ADIFF, [id number], TSH #### [address] [address] ALP [Catalytic activity/Vol] 76 U/L Normal 40-135 AO ADM SS Comment on above: Performed By: #### C BC, FT3, FT4, GFR, LIPID, CMP, ANEU, ADIFF, [id number], TSH #### [address] [address] Calcium [Mass/Vol] 9.1 mg/dL Normal 8.4-10.2 AO ADM SS Comment on above: Performed By: #### C BC, FT3, FT4, GFR, LIPID, CMP, ANEU, ADIFF, [id number], TSH #### [address] [address] Chloride [Moles/Vol] 103 mmol/L Normal 98-107 AO A DM SS Comment on above: Performed By: #### C BC, FT3, FT4, GFR, LIPID, CMP, ANEU, ADIFF, [id number], TSH #### [address] [address] CO2 [Moles/Vol] 26 mmol/L Normal 22-29 AO ADM SS Comment on above: Performed By: #### C BC, FT3, FT4, GFR, LIPID, CMP, ANEU, ADIFF, [id number], TSH #### [address] [address] Creatinine [Mass/Vol] 0.67 mg/dL Normal 0.55-1.02 AO ADM SS Comment on above: Performed By: #### C BC, FT3, FT4, GFR, LIPID, CMP, ANEU, ADIFF, [id number], TSH #### [address] [address] Electrolyte Balance 9.0 mEq/L Normal 4.0-15.0 AO AD M SS Comment on above: Performed By: #### C BC, FT3, FT4, GFR, LIPID, CMP, ANEU, ADIFF, [id number], TSH #### [address] [address] Globulin 4.5 G/dL Normal AO ADM SS Comment on above: Performed By: #### C BC, FT3, FT4, GFR, LIPID, CMP, ANEU, ADIFF, [id number], TSH #### [address] [address] Glucose [Mass/Vol] 98 mg/dL Normal 70-105 AO ADM SS Comment on above: Performed By: #### C BC, FT3, FT4, GFR, LIPID, CMP, ANEU, ADIFF, [id number], TSH #### [address] [address] Potassium [Moles/Vol] 4.6 mmol/L Normal 3.5-5.1 AO ADM SS Comment on above: Performed By: #### C BC, FT3, FT4, GFR, LIPID, CMP, ANEU, ADIFF, [id number], TSH #### [address] [address] Sodium [Moles/Vol] 138 mmol/L Normal 136-145 AO ADM SS Comment on above: Performed By: #### C BC, FT3, FT4, GFR, LIPID, CMP, ANEU, ADIFF, [id number], TSH #### [place] [address] Urea nitrogen [Mass/Vol] 16 mg/dL Normal 7-18 AO ADM SS Comment on above: Performed By: #### C BC, FT3, FT4, GFR, LIPID, CMP, ANEU, ADIFF, [id number], TSH #### [place] [address] [id number] By: SYSTEM SYSTEM on 09-19-2023 Free T3 [Mass/Vol] 3.14 pg/mL Normal 2.30-4.00 AO ADM SS Comment on above: Performed By: #### C BC, FT3, FT4, GFR, LIPID, CMP, ANEU, ADIFF, [id number], TSH #### [place] [address] [id number] By: SYSTEM SYSTEM on 09-19-2023 Free T4 [Mass/Vol] 0.94 ng/dL Normal 0.76-1.46 AO ADM SS Comment on above: Performed By: #### C BC, FT3, FT4, GFR, LIPID, CMP, ANEU, ADIFF, [id number], TSH #### [place] [address] LABORATORYOrdered By: SYSTEM SYSTEM on 09-19-2023 Albumin BCP dye [Mass/Vol] 3.2 G/dL Low 3.5 - 5.0 G/dL AO ADM SS ALT With P-5'-P [Catalytic activity/Vol] 27 U/L Normal 14 - 59 U/L AO ADM SS AST With P-5'-P [Catalytic activity/Vol] 13 U/L Normal 10 - 40 U/L AO ADM SS Bilirubin [Mass/Vol] 0.7 mg/dL Normal 0.2 - 1 .0 mg/dL AO ADM SS Comment on above: Interpretive Data: U se of this assay is not recommended for patients undergoing treatment with eltrombopag due to the potential for falsely elevated results. GFR/1.73 sq M.predicted among blacks MDRD (S/P/Bld) [Vol rate/Area] 116 ml/min/1.73sqm Invalid Interpretation Code AO Chemistry S Comment on above: Interpretive Data: GFR Population mean for , Non- Americans Ages 20-29 = 116 mL/min/1.73 sq.m. Ages 30-39 = 107 mL/min/1.73 sq.m. Ages 40-49 = 99 mL/min/1.73 sq.m. Ages 50-59 = 93 mL/min/1.73 sq.m. Ages 60-69 = 85 mL/min/1.73 sq.m. Ages 70+ = 75 mL/min/1.73 sq.m. Chronic Kidney Disease: Less than 60 mL/min/1.73 square meters End Stage Renal Disease: Less than 15 mL/min/1.73 square meters GFR/1.73 sq M.predicted among non-blacks MDRD (S/P/Bld) [Vol rate/Area] 96 ml/min/1.73sqm Invalid Interpretation Code AO Chemistry S Comment on above: Interpretive Data: GFR Population mean for , Non- Americans Ages 20-29 = 116 mL/min/1.73 sq.m. Ages 30-39 = 107 mL/min/1.73 sq.m. Ages 40-49 = 99 mL/min/1.73 sq.m. Ages 50-59 = 93 mL/min/1.73 sq.m. Ages 60-69 = 85 mL/min/1.73 sq.m. Ages 70+ = 75 mL/min/1.73 sq.m. Chronic Kidney Disease: Less than 60 mL/min/1.73 square meters End Stage Renal Disease: Less than 15 mL/min/1.73 square meters Hemoglobin (Bld) [Mass/Vol] 12.8 G/dL Normal 12.0 - 16.0 G/dL AO Workflow SS Platelets (Bld) [#/Vol] 387 103/mcL Normal 130 - 400 10^3/mcL AO Workflow SS Protein [Mass/Vol] 7.7 G/dL Normal 6.4 - 8.2 G/dL AO ADM SS RBC (Bld) [#/Vol] 4.17 106/mcL Low 4.20 - 5.4 0 10^6/mcL AO Workflow SS Urea nitrogen/Creatinine [Mass ratio] 24 ratio Normal 7 - 27 ratio AO ADM SS WBC (Bld) [#/Vol] 8.4 103/mcL Normal 4.6 - 10.8 10^3/mcL AO Workflow SS LIPIDOrdered By: Martha Weinberg hmore on 09-19-2023 Cholesterol [Mass/Vol] 217 mg/dL High 0-200 AO ADM SS Comment on above: Interpretive Data: C holesterol Reference Interval: Less than 200 Desirable 200-239 Borderline high risk 240 and above High risk Result Comment: Chol esterol Reference Interval: Less than 200 Desirable 200-239 Borderline high risk 240 and above High risk Performed By: #### F T4, TSH #### [facility] [address] [address] Cholesterol in HDL [Mass/Vol] 55 mg/dL Normal 40-60 AO ADM SS Comment on above: Performed By: #### F T4, TSH #### [address] [address] Cholesterol in LDL [Mass/Vol] 148 mg/dL High 0-130 AO ADM SS Comment on above: Performed By: #### F T4, TSH #### [address] [address] Triglyceride [Mass/Vol] 69 mg/dL Normal 0-150 AO ADM SS Comment on above: Interpretive Data: T riglyceride Reference Interval: Less than 150 Normal 150-199 Borderline high risk 200-499 High risk 500 or higher Very high risk Result Comment: Trig lyceride Reference Interval: Less than 150 Normal 150-199 Borderline high risk 200-499 High risk 500 or higher Very high risk Performed By: #### F T4, TSH #### [address] [address] TSHOrdered By: SYSTEM SYSTEM on 09-19-2023 TSH Qn 6.18 m[IU]/L High 0.36-3.74 AO ADM SS Comment on above: Performed By: #### C BC, FT3, FT4, GFR, LIPID, CMP, ANEU, ADIFF, [id number], TSH #### [facility] [address] [address] 3D MAMM BILAT SCREENon 10-15 3D MAMM BILAT SCREEN [address] [address] Patient: MERARI DUEÑAS Phone#: : [phone] Age: 40 Gender: F Pt. Type: Out Account: [id number] Location: [id number] Ordering: GERBER GORDON Exam Date: 10/15/2020/8:37 Family Phys: Charge Code: 660124 Physician: Knott Order #: [id number] DLP Dose#: PROCEDURE: BILATERAL SCREENING BREAST TOMOSYNTHESIS MAMMOGRAM WITH CAD COMPARISON: None. INDICATIONS: Screening mammogram BREAST COMPOSITION: Almost entirely fatty(<25% glandular). FINDINGS: DIAGNOSTIC CATEGORY 1--NEGATIVE ASSESSMENT. RIGHT BREAST: No significant suspicious finding. LEFT BREAST: No significant suspicious finding. RECOMMENDATIONS: ROUTINE MAMMOGRAM AND CLINICAL EVALUATION IN 12 MONTHS. PLEASE NOTE: A NORMAL MAMMOGRAM DOES NOT EXCLUDE THE POSSIBILITY OF BREAST CANCER. A CLINICALLY SUSPICIOUS PALPABLE LUMP SHOULD BE BIOPSIED. THIS FACILITY UTILIZES A REMINDER SYSTEM TO ENSURE THAT ALL PATIENTS RECEIVE REMINDER LETTERS FOR APPOINTMENTS. THIS INCLUDES REMINDERS FOR ROUTINE MAMMOGRAMS, DIAGNOSITC MAMMOGRAMS, OR OTHER BREAST IMAGING INTERVENTIONS WHEN APPROPRIATE. THIS PATIENT WILL BE PLACED IN THE APPROPRIATE REMINDER SYSTEM. Dictated by: Teri Wan MD on 10/15/2020 at 9:33 Approved by: Teri Wan MD on 10/15/2020 at 9:35 Normal [facility] HGB A1C [CCL]on 09-17-2020 HbA1c (Bld) [Mass fraction] 5.3 % Normal 4.3-5.6 [facility] Comment on above: Result Comment: Amer [place] Diabetes Association guidelines indicate that patients with HgbA1c in the range 5.7-6.4% are at increased risk for development of diabetes, and intervention by lifestyle modification may be beneficial. HgbA1c greater or equal to 6.5% is considered diagnostic of diabetes. Performed By: #### 2 06513 #### [facility],[address] [place] [address] HbA1c (Bld) [Mass fraction] 105 mg/dL Normal [facility] Comment on above: Result Comment: eAG: (Estimated average glucose) is a calculated value from HgbA1c and is truck sales representative of the average blood glucose level in the last 2-3 month period. [facility] [address] [place] [address] Kong Chavira III, M.D. [id number] Performed By: #### 2 10536 #### [facility],[address] [place] [address] Hemoglobin A1con 09-17-2020 HbA1c (Bld) [Mass fraction] 5.3 % Normal 4.3-5.6 [facility] Comment on above: Performed By: #### H BA1C #### [facility] Routine Lab [address] [place], [place] [id number] HbA1c (Bld) [Mass fraction] 105 mg/dL Normal [facility] Comment on above: Performed By: #### H BA1C #### [facility] Routine Lab [address] [place] [id number] LIPID PROFILEon 09-16-2020 Cholesterol [Mass/Vol] 179 mg/dL Normal 0 - 240 [facility] Comment on above: Performed By: #### 2 78075 #### [facility],[address] [place] [address] Cholesterol in HDL [Mass/Vol] 40 mg/dL Normal 40 - 60 [facility] Comment on above: Performed By: #### 2 26590 #### [facility],[address] [place] [address] Cholesterol in LDL [Mass/Vol] 122 mg/dL Normal 0 - 129 [facility] Comment on above: Performed By: #### 2 59821 #### [facility],[address] [place] [address] Cholesterol.total/Cho lesterol in HDL [Mass ratio] 4.5 {ratio} Normal 0.0 - 5.0 [facility] Comment on above: Performed By: #### 2 35843 #### [facility],[address] [place] [address] Lipid 1996 panel Normal [facility] Comment on above: Result Comment: LIPI D PROFILE Performed By: #### 2 61365 #### [facility],[address] [place] [address] Triglyceride [Mass/Vol] 84 mg/dL Normal 0 - 150 [facility] Comment on above: Performed By: #### 2 35046 #### [facility],[address] [place] [address] TSHon 09-16-2020 TSH Qn 4.78 uIU/ml High 0.35 - 3.74 [facility] Comment on above: Performed By: #### 2 32857 #### [facility],[address] [place] [address] EMERGENCY REPORTon EMERGENCY REPORT [facility] EMERGENCY ROOM REPORT NAME ACCOUNT SEX AGE ADMIT DISCHARGE PT MED. RECORD# NUMBER DATE DATE TYPE MERARI DUEÑAS [id number] F 40 08/17/20 08/17/20 3 M [id number] ROOM: ER DATE OF : 1980 DICTATING PHYSICIAN: Alverto Lopez ADDENDUM: I did talk to her who said she was having pain. I told her to come back and we will reexamine her. He said he would give her the message. Dictated By: Alverto Lopez DO 08/17/20 08:03 JOB #: [id number] Transcribed By: stephanie 08/17/20 14:06 Electronically signed by: LETTY Lopez D.O. 08/19/20 07:16 Page 1 of 1 MERARI DUEÑAS Emergency Room Report Normal [facility] EMERGENCY REPORT [facility] EMERGENCY ROOM REPORT NAME ACCOUNT SEX AGE ADMIT DISCHARGE PT MED. RECORD# NUMBER DATE DATE TYPE MERARI DUEÑAS [id number] F 40 08/17/20 08/17/20 3 M [id number] ROOM: ER DATE OF : 1980 DICTATING PHYSICIAN: Alverto Lopez HISTORY OF PRESENT ILLNESS: The patient came in complaining of abdominal pain. She has right upper quadrant pain. She has had this pain for about 4 days, the last day it got worse. She said right now it is a 3 out or 10, and at times it is a 7 out of 10. She was here earlier this morning and presents to the emergency department. She has known gallbladder disease, which she has had ultrasounds done a couple of years ago. She came in and has a cough. She took Tylenol this morning. PAST MEDICAL HISTORY: She has morbid obesity, hypothyroidism. PAST SURGICAL HISTORY: She had a and D&C. SOCIAL HISTORY: She does not smoke or drink. REVIEW OF SYSTEMS: Ten systems reviewed and negative except as mentioned above. PHYSICAL EXAMINATION: Blood pressure 182/109, pulse 84, respirations 20. The patient is afebrile, pulse ox 94% on room air. Head is normocephalic and atraumatic. Eyes: Pupils are equal, round, and reactive to light. Extraocular muscles are intact. Nares are patent. Throat has adequate oral moisture. Uvula is midline. Neck is supple without petechiae or rash. Heart is regular rate and rhythm without murmur. S1 equals S2. No S3 or S4 appreciated. Lungs are clear to auscultation bilaterally. No rales, rhonchi, or retractions. Abdomen is soft, nontender, and nondistended. Skin is warm and dry. She does have tenderness in her right upper quadrant. DIAGNOSTIC DATA: Her test was negative. Lipase was normal. Liver function tests were unremarkable. Calcium was normal. White count was 10,000. Her ultrasound showed acute cholecystitis. EMERGENCY DEPARTMENT COURSE AND TREATMENT/PLAN/DISPOSI TION: I did discuss with Dr. Hernandez. The patient will see Dr. Hernandez at this time. I did write her for 10 Percocet for pain. She was going [facility] right now to be evaluated. Page 1 of 2 MERARI DUEÑAS Emergency Room Report MERARI DUEÑAS : 1980 Dictated By: Alverto Lopez DO 08/17/20 14:36 JOB #: [id number] Transcribed By: stephanie 08/17/20 15:57 Electronically signed by: LETTY Lopez D.O. 08/19/20 07:16 Page 2 of 2 MERARI DUEÑAS Emergency Room Report Normal [facility] CBC + DIFFon 08-17-2020 Basophils (Bld) [#/Vol] 0.10 x10EE3/UL Normal 0.00 - 0.10 [facility] Comment on above: Performed By: #### 2 74395 #### [facility],[address] [place], [place] [id number] Basophils/100 WBC (Bld) 0.6 % Normal 0.0 - 2.0 [facility] Comment on above: Performed By: #### 2 94460 #### [facility],[address] [place] [address] CBC + DIFF Normal [facility] Comment on above: Result Comment: CBC- COMPLETE BLOOD COUNT Performed By: #### 2 81458 #### [facility],[address] [place] [address] Eosinophils (Bld) [#/Vol] 0.10 x10EE3/UL Normal 0.00 - 0.50 [facility] Comment on above: Performed By: #### 2 66724 #### [facility],[address] [place] [address] Eosinophils/100 WBC (Bld) 0.8 % Normal 0.0 - 7.0 [facility] Comment on above: Performed By: #### 2 75164 #### [facility],[address] [place] [address] Erythrocyte distribution width (RBC) [Ratio] 13.4 % Normal 12.0 - 15.6 [facility] Comment on above: Performed By: #### 2 04682 #### [facility],[address] [place] [address] Hematocrit (Bld) [Volume fraction] 38.1 % Normal 34.0 - 46.0 [facility] Comment on above: Performed By: #### 2 67657 #### [facility],[address] [place] [address] Hemoglobin (Bld) [Mass/Vol] 13.4 g/dL Normal 12.0 - 16.0 [facility] Comment on above: Performed By: #### 2 40376 #### [facility],[address] [place] [address] Lymphocytes (Bld) [#/Vol] 1.40 x10EE3/UL Normal 0.80 - 2.80 [facility] Comment on above: Performed By: #### 2 53531 #### [facility],[address] [place] [address] Lymphocytes/100 WBC (Bld) 13.3 % Low 20.0 - 45.0 [facility] Comment on above: Performed By: #### 2 60132 #### [facility],[address] [place] [address] MANUAL DIFF N/A Normal [facility] Comment on above: Performed By: #### 2 12693 #### [facility],[address] [place] [address] MCH (RBC) [Entitic mass] 31 pg Normal 27 - 33 [facility] Comment on above: Performed By: #### 2 38401 #### [facility],[address] [place] [address] MCHC (RBC) [Mass/Vol] 35 X10 3 Normal 32 - 36 [facility] Comment on above: Performed By: #### 2 60770 #### [facility],[address] [place] [address] MCV (RBC) [Entitic vol] 88 fL Normal 80 - 99 [facility] Comment on above: Performed By: #### 2 13410 #### [facility],[address] [place] [address] Monocytes (Bld) [#/Vol] 0.90 x10EE3/UL Normal 0.20 - 1.00 [facility] Comment on above: Performed By: #### 2 01397 #### [facility],[address] [place] [address] MONOS % 7.8 % Normal 0.0 - 10.0 [facility] Comment on above: Performed By: #### 2 59450 #### [facility],[address] [place] [address] Morphology Thanh (Bld) [Interp] N/A Normal [facility] Comment on above: Result Comment: {CD] Performed By: #### 2 41534 #### [facility],[address] [place] [address] Neutrophils (Bld) [#/Vol] 8.40 x10EE3/UL High 1.50 - 7.10 [facility] Comment on above: Performed By: #### 2 74995 #### [facility],[address] [place] [address] Neutrophils/100 WBC (Bld) 77.5 % High 46.0 - 76.0 [facility] Comment on above: Performed By: #### 2 81244 #### [facility],[address] [place] [address] Platelet mean volume (Bld) [Entitic vol] 7.1 fL Normal 6.6 - 10.5 [facility] Comment on above: Result Comment: AUTO MATED DIFFERENTIAL Performed By: #### 2 39828 #### [facility],[address] [place] [address] Platelets (Bld) [#/Vol] 395 x10EE3/UL Normal 150 - 450 [facility] Comment on above: Performed By: #### 2 74790 #### [facility],[address] [place] [address] RBC (Bld) [#/Vol] 4.35 x 10EE6/UL Normal 4.10 - 5.30 [facility] Comment on above: Performed By: #### 2 43924 #### [facility],[address] [place] [address] WBC (Bld) [#/Vol] 10.9 x 10EE3/UL High 4.5 - 10.8 [facility] Comment on above: Performed By: #### 2 58523 #### [facility],[address] [place] [address] Basophils (Bld) [#/Vol] 0.10 x10EE3/UL Normal 0.00 - 0.10 [facility] Comment on above: Performed By: #### 2 58755 #### [facility],[address] [place] [address] Basophils/100 WBC (Bld) 0.4 % Normal 0.0 - 2.0 [facility] Comment on above: Performed By: #### 2 55167 #### [facility],[address] [place] [address] CBC + DIFF Normal [facility] Comment on above: Result Comment: CBC- COMPLETE BLOOD COUNT Performed By: #### 2 53776 #### [address] [address] Eosinophils (Bld) [#/Vol] 0.00 x10EE3/UL Normal 0.00 - 0.50 [facility] Comment on above: Performed By: #### 2 52930 #### [facility],[address] [place] [address] Eosinophils/100 WBC (Bld) 0.4 % Normal 0.0 - 7.0 [facility] Comment on above: Performed By: #### 2 30109 #### [facility],[address] [place] [address] Erythrocyte distribution width (RBC) [Ratio] 13.1 % Normal 12.0 - 15.6 [facility] Comment on above: Performed By: #### 2 59120 #### [facility],[address] [place], [place] [address] Hematocrit (Bld) [Volume fraction] 40.3 % Normal 34.0 - 46.0 [facility] Comment on above: Performed By: #### 2 66408 #### [facility],[address] [place], [place] [address] Hemoglobin (Bld) [Mass/Vol] 14.0 g/dL Normal 12.0 - 16.0 [facility] Comment on above: Performed By: #### 2 20483 #### [facility],[address] [place] [address] Lymphocytes (Bld) [#/Vol] 2.20 x10EE3/UL Normal 0.80 - 2.80 [facility] Comment on above: Performed By: #### 2 61569 #### [facility],[address] [place], [place] [address] Lymphocytes/100 WBC (Bld) 17.4 % Low 20.0 - 45.0 [facility] Comment on above: Performed By: #### 2 92270 #### [facility],[address] [place] [address] MANUAL DIFF N/A Normal [facility] Comment on above: Performed By: #### 2 39827 #### [facility],[address] [place] [address] MCH (RBC) [Entitic mass] 30 pg Normal 27 - 33 [facility] Comment on above: Performed By: #### 2 46726 #### [facility],[address] [place] [address] MCHC (RBC) [Mass/Vol] 35 X10 3 Normal 32 - 36 [facility] Comment on above: Performed By: #### 2 65142 #### [facility],[address] [place] [address]999 MCV (RBC) [Entitic vol] 88 fL Normal 80 - 99 [facility] Comment on above: Performed By: #### 2 00818 #### [facility],[address] [place] [address]72 Monocytes (Bld) [#/Vol] 0.80 x10EE3/UL Normal 0.20 - 1.00 [facility] Comment on above: Performed By: #### 2 42477 #### [facility] [place] [address] MONOS % 6.3 % Normal 0.0 - 10.0 [facility] Comment on above: Performed By: #### 2 24894 #### [facility],[address] [place] [address] 27559 Morphology Thanh (Bld) [Interp] N/A Normal [facility] Comment on above: Result Comment: {CD] Performed By: #### 2 45039 #### [facility],[address] [place] [address] 13685 Neutrophils (Bld) [#/Vol] 9.40 x10EE3/UL High 1.50 - 7.10 [facility] Comment on above: Performed By: #### 2 92596 #### [facility],[address] [place] [address] 31852 Neutrophils/100 WBC (Bld) 75.5 % Normal 46.0 - 76.0 [facility] Comment on above: Performed By: #### 2 51645 #### [facility],[address] [place] [address] 42504 Platelet mean volume (Bld) [Entitic vol] 7.2 fL Normal 6.6 - 10.5 [facility] Comment on above: Result Comment: AUTO MATED DIFFERENTIAL Performed By: #### 2 81806 #### [facility],[address] [place] [address] Platelets (Bld) [#/Vol] 454 x10EE3/UL High 150 - 450 [facility] Comment on above: Performed By: #### 2 94550 #### [facility],[address] [place] [address] 71082 RBC (Bld) [#/Vol] 4.59 x 10EE6/UL Normal 4.10 - 5.30 [facility] Comment on above: Performed By: #### 2 13642 #### [facility],[address] [place] [address] 49750 WBC (Bld) [#/Vol] 12.4 x 10EE3/UL High 4.5 - 10.8 [facility] Comment on above: Performed By: #### 2 42111 #### [facility],[address] [place] [address] 54217 CMP with eGFRon 08-17-2020 Age - Reported 40 years Normal [facility] Comment on above: Performed By: #### 2 98709 #### [facility],[address] [place] [address] 32776 Albumin [Mass/Vol] 3.3 g/dL Low 3.4 - 5.0 [facility] Comment on above: Performed By: #### 2 65810 #### [facility],[address] [place] [address]79 Albumin/Globulin [Mass ratio] 0.7 {ratio} Low 0.9 - 1.6 [facility] Comment on above: Performed By: #### 2 67596 #### [facility],[address] [place] [address] 59467 ALK PHOS 76 U/L Normal 46 - 116 [facility] Comment on above: Performed By: #### 2 07248 #### [facility],[address] [place] [address] 29629 ALT/SGPT 34 U/L Normal 14 - 59 [facility] Comment on above: Performed By: #### 2 21373 #### [facility],[address] [place] [address] 03875 Anion gap [Moles/Vol] 11 mmol/L Normal 10 - 20 [facility] Comment on above: Performed By: #### 2 10715 #### [facility],[address] [place] [address] 49608 AST/SGOT 17 U/L Normal 13 - 39 [facility] Comment on above: Performed By: #### 2 50289 #### [facility],[address] [place] [address] 53841 B/C RATIO 10 ratio Normal 0 - 30 [facility] Comment on above: Performed By: #### 2 96476 #### [facility],[address] [place] [address] 35872 Bilirubin [Mass/Vol] 0.9 mg/dL Normal 0.2 - 1.0 [facility] Comment on above: Performed By: #### 2 88357 #### [facility],[address] [place] [address] 77140 Calcium [Mass/Vol] 8.8 mg/dL Normal 8.5 - 10.1 [facility] Comment on above: Performed By: #### 2 85513 #### [facility],[address] [place] [address] 54568 Chloride [Moles/Vol] 102 mmol/L Normal 98 - 107 [facility] Comment on above: Performed By: #### 2 56891 #### [facility],[address] [place] [address]0932 CO2 [Moles/Vol] 28.5 mmol/L Normal 21.0 - 32.0 [facility] Comment on above: Performed By: #### 2 22600 #### [facility],[address] [place] [address] 18119 Creatinine [Mass/Vol] 0.8 mg/dL Normal 0.5 - 1.0 [facility] Comment on above: Performed By: #### 2 86385 #### [facility],[address] [place] [address] 54266 GFR/1.73 sq M predicted among non-blacks MDRD (S/P/Bld) [Vol rate/Area] Normal [facility] Comment on above: Result Comment: COMP REHENSIVE METABOLIC PANEL Performed By: #### 2 61523 #### [facility],[address] [place] [address] 13272 GFR/1.73 sq M predicted among non-blacks MDRD (S/P/Bld) [Vol rate/Area] mL/min/{1.73_m2} Normal 60 - 999 [facility] Comment on above: Result Comment: ACCO RDING TO THE NATIONAL KIDNEY DISEASE EDUCATION PROGRAM(NKDE), A NORMAL eGFR IS A VALUE GREATER THAN OR EQUAL TO 60 ML/MIN/1.73 SQ METERS. CHRONIC KIDNEY DISEASE: <60mL/MIN/1.73 SQ METERS KIDNEY FAILURE: <15mL/MIN/1.73 SQ METERS THIS TEST SHOULD ONLY BE USED FOR PATIENTS 18 YEARS OF AGE AND OLDER. Performed By: #### 2 85273 #### [facility],[address] [place] [address] 37854 Globulin (S) [Mass/Vol] 5.0 g/dL High 1.5 - 3.8 [facility] Comment on above: Performed By: #### 2 15851 #### [address] [address] Glucose [Mass/Vol] 106 mg/dL Normal 74 - 106 [facility] Comment on above: Performed By: #### 2 92572 #### [facility],[address] [place] [address] 58327 Potassium [Moles/Vol] 3.9 mmol/L Normal 3.5 - 5.1 [facility] Comment on above: Performed By: #### 2 80386 #### [facility],[address] [place] [address] 90987 Protein [Mass/Vol] 8.3 g/dL High 6.4 - 8.2 [facility] Comment on above: Performed By: #### 2 94517 #### [facility],[address] [place] [address] 49927 Sodium [Moles/Vol] 138 mmol/L Normal 136 - 145 [facility] Comment on above: Performed By: #### 2 93244 #### [address] [address] Urea nitrogen [Mass/Vol] 8 mg/dL Normal 7 - 18 [facility] Comment on above: Performed By: #### 2 68226 #### [facility],[address] [place] [address] 94736 Age - Reported 40 years Normal [facility] Comment on above: Performed By: #### 2 [id number] #### [facility],[address] [place] [address] 87618 Albumin [Mass/Vol] 3.7 g/dL Normal 3.4 - 5.0 [facility] Comment on above: Performed By: #### 2 80947 #### [facility],[address] [place] [address] 39644 Albumin/Globulin [Mass ratio] 0.7 {ratio} Low 0.9 - 1.6 [facility] Comment on above: Performed By: #### 2 01117 #### [facility],[address] [place] [address] 84478 ALK PHOS 80 U/L Normal 46 - 116 [facility] Comment on above: Performed By: #### 2 32485 #### [facility],[address] [place] [address] 84884 ALT/SGPT 36 U/L Normal 14 - 59 [facility] Comment on above: Performed By: #### 2 96996 #### [facility],[address] [place] [address] 78200 Anion gap [Moles/Vol] 12 mmol/L Normal 10 - 20 [facility] Comment on above: Performed By: #### 2 19684 #### [facility],[address] [place] [address] 01232 AST/SGOT 12 U/L Low 13 - 39 [facility] Comment on above: Performed By: #### 2 72826 #### [facility],[address] [place] [address] 79050 B/C RATIO 11 ratio Normal 0 - 30 [facility] Comment on above: Performed By: #### 2 67130 #### [facility],[address] [place] [address] 04400 Bilirubin [Mass/Vol] 0.9 mg/dL Normal 0.2 - 1.0 [facility] Comment on above: Performed By: #### 2 60523 #### [facility],[address] [place] [address] 97924 Calcium [Mass/Vol] 9.2 mg/dL Normal 8.5 - 10.1 [facility] Comment on above: Performed By: #### 2 27649 #### [facility],[address] [place] [address] 09384 Chloride [Moles/Vol] 100 mmol/L Normal 98 - 107 [facility] Comment on above: Performed By: #### 2 27547 #### [facility],[address] [place] [address] 57925 CO2 [Moles/Vol] 27.9 mmol/L Normal 21.0 - 32.0 [facility] Comment on above: Performed By: #### 2 74448 #### [facility],[address] [place] [address] 95757 Creatinine [Mass/Vol] 0.8 mg/dL Normal 0.5 - 1.0 [facility] Comment on above: Performed By: #### 2 28472 #### [facility],[address] [place] [address] 20513 GFR/1.73 sq M predicted among non-blacks MDRD (S/P/Bld) [Vol rate/Area] mL/min/{1.73_m2} Normal 60 - 999 [facility] Comment on above: Result Comment: ACCO RDING TO THE NATIONAL KIDNEY DISEASE EDUCATION PROGRAM(NKDE), A NORMAL eGFR IS A VALUE GREATER THAN OR EQUAL TO 60 ML/MIN/1.73 SQ METERS. CHRONIC KIDNEY DISEASE: <60mL/MIN/1.73 SQ METERS KIDNEY FAILURE: <15mL/MIN/1.73 SQ METERS THIS TEST SHOULD ONLY BE USED FOR PATIENTS 18 YEARS OF AGE AND OLDER. Performed By: #### 2 07456 #### [facility],[address] [place] [address] 00247 GFR/1.73 sq M predicted among non-blacks MDRD (S/P/Bld) [Vol rate/Area] Normal [facility] Comment on above: Result Comment: COMP REHENSIVE METABOLIC PANEL Performed By: #### 2 96871 #### [facility],[address] [place] [address] 69591 Globulin (S) [Mass/Vol] 5.1 g/dL High 1.5 - 3.8 [facility] Comment on above: Performed By: #### 2 78286 #### [facility],[address] [place] [address] 21976 Glucose [Mass/Vol] 115 mg/dL High 74 - 106 [facility] Comment on above: Performed By: #### 2 43133 #### [facility],[address] [place] [address] 81772 Potassium [Moles/Vol] 3.6 mmol/L Normal 3.5 - 5.1 [facility] Comment on above: Performed By: #### 2 72908 #### [facility],[address] [place] [address] 58665 Protein [Mass/Vol] 8.8 g/dL High 6.4 - 8.2 [facility] Comment on above: Performed By: #### 2 64202 #### [facility],[address] [place] [address] 86761 Sodium [Moles/Vol] 136 mmol/L Normal 136 - 145 [facility] Comment on above: Performed By: #### 2 56249 #### [facility],[address] [place] [address] 46271 Urea nitrogen [Mass/Vol] 9 mg/dL Normal 7 - 18 [facility] Comment on above: Performed By: #### 2 75012 #### [facility],[address] [place] [address] 34662 EMERGENCY REPORTon 1 EMERGENCY REPORT [facility] EMERGENCY ROOM REPORT NAME ACCOUNT SEX AGE ADMIT DISCHARGE PT MED. RECORD# NUMBER DATE DATE TYPE MERARI DUEÑAS [id number] F 40 08/16/20 08/17/20 3 M [id number] ROOM: ER DATE OF : 1980 DICTATING PHYSICIAN: Arron Clemens HISTORY OF PRESENT ILLNESS: The patient is a 40-year-old female who presents with a chief complaint of abdominal pain. The patient is complaining of several days of abdominal pain that feels similar to previous gallbladder issues. The patient says that she was told in the past that she has gallbladder problems and needs to have her gallbladder removed but she has had issues with her living situation and employment and has not been able to follow up or do this. She reports right upper quadrant pain that radiates to her epigastric region. It is described as burning, intermittent, and not made better or worse by anything. She is also complaining of nausea without vomiting. She denies fever, chills, chest pain, shortness of breath, back pain, diarrhea, bloody stools, melena, vaginal bleeding, dysuria, hematuria, or frequency. No history of pancreatitis. PAST MEDICAL HISTORY: She has a past medical history of hypothyroidism. PAST SURGICAL HISTORY: Previous abdominal surgeries include Caesarean section. SOCIAL HISTORY: She denies any use of tobacco, alcohol or illicit substances. REVIEW OF SYSTEMS: A 10-point review of systems was done and unless otherwise specified above was negative. PHYSICAL EXAMINATION: Blood pressure is 179/115, heart rate 88, respiratory rate 16, temperature 96, and saturating 98% on room air. The patient is well appearing and in no acute distress. Head is atraumatic, normocephalic. She has moist mucous membranes. No rhinorrhea or congestion. Pupils are equal, round, and reactive bilaterally. Extraocular movements are intact. Neck is supple with normal range of motion. On cardiac auscultation, she has a regular rate and rhythm. No murmurs, rubs or gallops. Distal pulses are intact. Lungs are clear to auscultation. Normal work of breathing. Abdomen is soft and nondistended with mild tenderness to palpation in the right upper quadrant and epigastric regions. She has a negative Guerra's sign. No cva tenderness to palpation. No suprapubic tenderness to palpation. No extremity edema, tenderness to palpation, or deformity. She is alert and oriented x3 with normal mentation. Gait is normal. Speech is normal. No facial droop. Behavior is normal. MEDICAL DECISION-MAKING/EMERGE NCY DEPARTMENT COURSE AND Page 1 of 2 MERARI DUEÑAS Emergency Room Report MERARI DUEÑAS : 1980 TREATMENT: The patient is a 40-year-old female who presents with a chief complaint of abdominal pain. Her vitals are stable, and she is well appearing. Given her history and clinical findings, differential includes biliary colic, cholecystitis, pancreatitis, gastritis, or peptic ulcer disease. She was given one liter of normal saline, morphine, and Zofran. Laboratories were obtained and notable for a mild nonspecific leukocytosis of 12.4. Her lipase was low at 40. Hemoglobin and hematocrit are stable. Urinalysis had a small amount of blood in it but otherwise no infection. Her hepatic panel was within normal limits. On reassessment, the patient says that her right upper quadrant pain has improved, but she is still having some epigastric pain. She was given a GI cocktail with further improvement in her symptoms. I discussed with the patient the possibility of a CT scan, which would require transfer due to her weight, like she has had in the past. We had shared decision-making and discussed the option of waiting and good return precautions given her symptoms are currently improved versus transfer for CT scan. The patient is agreeable to discharge home with follow-up and returning for new or worsening symptoms. We discussed follow-up instructions and return indications. The patient voiced understanding and was agreeable. All questions were answered. DIAGNOSIS: Biliary colic. PLAN/DISPOSITION: She was discharged home in stable condition. Dictated By: Arron Clemens MD 08/17/20 04:33 JOB #: [id number] Transcribed By: luisa 08/17/20 08:10 Electronically signed by: Dr. Arron Clemens 08/17/20 18:11 Page 2 of 2 MERARI DUEÑAS Emergency Room Report Normal [facility] LIPASEon 08-17-2020 Lipase [Catalytic activity/Vol] 36.0 U/L Low 73.0 - 393 [facility] Comment on above: Performed By: #### 2 44702 #### [facility],[address] [place] [address] 84199 Lipase [Catalytic activity/Vol] 40.0 U/L Low 73.0 - 393 [facility] Comment on above: Performed By: #### 2 52595 #### [facility],[address] [place], [place] [id number] SERUM QUALon 08-17 EXTERNAL QC DONE? YES Normal [facility] Comment on above: Performed By: #### 2 27613 #### [facility],[address] [place] [address] INTERNAL QC PASS Normal [facility] Comment on above: Performed By: #### 2 25636 #### [facility],[address] [place] [address] SER Negative Normal NEGATIVE [facility] Comment on above: Performed By: #### 2 78225 #### [facility],[address] [place], [place] [id number] URINALYSISon 08-17-2020 Amorphous NONE Normal [facility] Comment on above: Performed By: #### 2 05794 #### [facility],[address] [place] [address] 45201 Bacteria LM.HPF (Urine sed) [#/Area] NONE Normal [facility] Comment on above: Performed By: #### 2 88751 #### [facility],[address] [place] [address] 91559 Bilirubin [Mass/Vol] Negative Normal NORMAL: NEGATIVE [facility] Comment on above: Performed By: #### 2 08901 #### [facility],[address] [place] [address] 23996 Blood 25 Abnormal NORMAL: NEGATIVE [facility] Comment on above: Performed By: #### 2 17022 #### [facility],[address] [place] [address] 43469 Casts LM.LPF (Urine sed) [#/Area] NONE Normal [facility] Comment on above: Performed By: #### 2 61135 #### [facility],[address] [place] [address] Clarity (U) clear Normal NORMAL: CLEAR [facility] Comment on above: Performed By: #### 2 39438 #### [facility],[address] [place] [address] Color (U) p.yel Normal NORMAL: YELLOW [facility] Comment on above: Performed By: #### 2 83096 #### [facility],[address] [place] [address] Crystals LM Nom (Urine sed) NONE Normal [facility] Comment on above: Performed By: #### 2 08251 #### [facility],[address] [place] [address] Epi Cells OCC Normal [facility] Comment on above: Performed By: #### 2 60067 #### [facility],[address] [place] [address] Glucose [Mass/Vol] NORM Normal NORMAL: NORMAL [facility] Comment on above: Performed By: #### 2 43559 #### [facility],[address] [place] [address] Ketone Negative Normal NORMAL: NEGATIVE [facility] Comment on above: Performed By: #### 2 79662 #### [facility],[address] [place] [address] Microscopic SEE BELOW Normal [facility] Comment on above: Result Comment: MICR OSCOPIC Performed By: #### 2 69210 #### [facility],[address] [place] [address] Mucous NONE Normal [facility] Comment on above: Performed By: #### 2 08238 #### [facility],[address] [place], [place] [id number] Nitrite Ql (U) Negative Normal NORMAL: NEGATIVE [facility] Comment on above: Performed By: #### 2 38942 #### [facility],[address] [place] [address] pH (Bld) 6 Normal NORMAL: 5.0-8.0 [facility] Comment on above: Performed By: #### 2 26878 #### [facility],[address] [place] [address] Protein (U) [Mass/Vol] 30 mg/dL Abnormal NORMAL: NEGATIVE [facility] Comment on above: Performed By: #### 2 30287 #### [facility],[address] [place] [address] Rbc 0-5 Normal 0-3/hpf [facility] Comment on above: Performed By: #### 2 15404 #### [facility],[address] [place] [address] Sp [place] 1.010 Normal NORMAL: 1.010-1.030 [facility] Comment on above: Performed By: #### 2 33944 #### [facility],[address] [place] [address] Specimen type Nom (Spec) Void Normal [facility] Comment on above: Performed By: #### 2 85177 #### [facility],[address] [place], [place] [id number] Urobilinog NORM Normal NORMAL: NORMAL [facility] Comment on above: Performed By: #### 2 10101 #### [facility],[address] [place] [address] 09712 Wbc NONE Normal 0-5/hpf [facility] Comment on above: Performed By: #### 2 73694 #### [facility],[address] [place] [address] 77013 WBC (Bld) [#/Vol] Negative Normal NORMAL: NEGATIVE [facility] Comment on above: Performed By: #### 2 67185 #### [facility],[address] [place] [address] 14597 Yeast LM Ql (Urine sed) NONE Normal [facility] Comment on above: Performed By: #### 2 83974 #### [facility],[address] [place] [address] 52797 US RUQ (GB/PANCREAS)on 08-17 US RUQ (GB/PANCREAS) [place] [address] Patient: MERARI DUEÑAS Phone#: : 1980 Age: 40 Gender: F Pt. Type: ER Account: [id number] Location: [facility] Ordering: ALVERTO LOPEZ Exam Date: 08/17/2020/10:11 Family Phys: Charge Code: [id number] Physician: Knott Order #: [id number] DLP Dose#: PROCEDURE: RUQ (GB) ULTRASOUND COMPARISON: [facility], RUQ (GB), 09/15/2016, 19:18. INDICATIONS: Abdominal pain. FINDINGS: LIVER: Limited evaluation due to patient body habitus. The parenchyma appears increased in echogenicity suggesting fatty infiltration. Evaluation limited for focal lesion. BILIARY: Common bile duct is dilated measuring 0.7 cm. There is gallbladder wall thickening of 0.5 cm. There is trace pericholecystic fluid. Shadowing stones are seen within the gallbladder, a truck sales representative stone measures 2.9 cm. Findings consistent with acute cholecystitis. PANCREAS: Not visualize RIGHT KIDNEY: Normal renal parenchymal echogenicity. No hydronephrosis. OTHER: Negative. CONCLUSION: 1. Acute cholecystitis. This report was communicated by telephone to Dr. Lopez at the dictation time shown below. DICTATED BY: BENITA RYAN MD ON 08/17/2020 AT 10:44 APPROVED BY: BENITA RYAN MD ON 08/17/2020 AT 10:50 Normal [facility] Otheron 11-27-2007 CONVERTED ELECTRONIC SIGNATURE EXTERNAL CONSULT, PATHOLOGIST (Electronic signature on file) Final Signed Out: 11/27/2007 08:49 [facility] CONVERTED FINAL DIAGNOSIS 15-16 WEEK FEMALE GESTATION WITH A NORMAL KARYOTYPE DEMONSTRATING AUTOLYZED FRAGMENTS OF A FETUS AND PLACENTAL TISSUE WITH CHANGES CONSISTENT WITH IN-UTERO RETENTION. [facility] CONVERTED ORDERING PROVIDER Ordering Provider: ELIANE ZOË [facility] Otheron 08-23-2007 CONVERTED ELECTRONIC SIGNATURE ELIANE BERMUDEZ M.D., PATHOLOGIST (Electronic signature on file) Final Signed Out: 08/23/2007 16:24 [facility] CONVERTED FINAL DIAGNOSIS DIAGNOSIS URINE - NO MALIGNANT CELLS IDENTIFIED. NARRATIVE BENIGN UROTHELIAL CELLS AND SQUAMOUS CELLS. [facility] CONVERTED ORDERING PROVIDER Ordering Provider: ELIANE ZOË [facility] Hematologyon 08-22-2007 [facility] (RBC) [Entitic mass] PLEASE SEE FULL REPORT FROM [facility] Otheron 08-22-2007 CONVERTED ELECTRONIC SIGNATURE EXTERNAL CONSULT, PATHOLOGIST (Electronic signature on file) Final Signed Out: 08/22/2007 15:19 [facility] CONVERTED ORDERING PROVIDER Ordering Provider: ELIANE ZOË [facility] Vital Signs Date Time Vital Sign Value Performing Clinician Faci lity 01-29-2025 08:34-0400 Body mass index (BMI) [Ratio] 78.9 kg/m2 Anna Marie Cosby [employer] Work Phone: [facility] 01-29-2025 08:34-0400 Body temperature 97.4 [degF] Anna Marie Cosby [employer] Work Phone: 0(510)205-816726 [place] [address] 01-29-2025 08:34-0400 Body weight 249.47 kg Anna Marie Cosby [employer] Work Phone: 0(583)100-407826 [place] [address] 01-29-2025 08:34-0400 Diastolic blood pressure 77 mm[Hg] Anna Marie Cosby [employer] Work Phone: 2(558)022-029626 [place] [address] 01-29-2025 08:34-0400 Heart rate 83 /min Anna Marie Cosby [employer] Work Phone: 3(711)752-362926 [place] [address] 01-29-2025 08:34-0400 Respiratory rate 20 /min Anna Marie Cosby [employer] Work Phone: 1(649)588-382526 [place] [address] 01-29-2025 08:34-0400 SaO2% (BldA) [Mass fraction] 96 % Anna Marie Cosby [employer] Work Phone: [facility] 01-29-2025 08:34-0400 Systolic blood pressure 126 mm[Hg] Anna Marie Zander [employer] Work Phone: [facility] 10-29-2024 07:50-0400 Body mass index (BMI) [Ratio] 78.2 kg/m2 Anna Marie Zander [employer] Work Phone: 7(243)636-830326 [place] [address] 10-29-2024 07:50-0400 Body temperature 97.2 [degF] Anna Marie Zander [employer] Work Phone: 0(951)019-444326 [place] [address] 10-29-2024 07:50-0400 Body weight 247.2 kg Anna Marie Zander [employer] Work Phone: 4(243)324-237926 [place] [address] 10-29-2024 07:50-0400 Diastolic blood pressure 76 mm[Hg] Anna Marie Zander [employer] Work Phone: 5(573)081-185926 [place] [address] 10-29-2024 07:50-0400 Heart rate 79 /min Anna Marieobed Cosby [employer] Work Phone: 8(920)[phone] [place] [address] 10-29-2024 07:50-0400 Respiratory rate 20 /min Anna Marie Zander [employer] Work Phone: 2(300)[phone] [place] [address] 10-29-2024 07:50-0400 SaO2% (BldA) [Mass fraction] 99 % Anna Marie Zander [employer] Work Phone: 1(584)459-623926 [place] [address] 10-29-2024 07:50-0400 Systolic blood pressure 120 mm[Hg] Anna Marieobed Cosby [employer] Work Phone: 5(372)293-175126 [place] [address] 04-03-2024 11:28-0400 Body height 177.8 cm George South MD Work Phone: [facility] 04-03-2024 11:28-0400 Body mass index (BMI) [Ratio] 78.63 kg/m2 George South MD Work Phone: [facility] 04-03-2024 11:28-0400 Body weight 248.57 kg George South MD Work Phone: [facility] 04-03-2024 11:28-0400 Diastolic blood pressure 83 mm[Hg] George South MD Work Phone: [facility] 04-03-2024 11:28-0400 Heart rate 71 /min George South MD Work Phone: [facility] 04-03-2024 11:28-0400 Systolic blood pressure 136 mm[Hg] George South MD Work Phone: [facility] 10-16-2023 09:57-0400 Body mass index (BMI) [Ratio] 74.4 kg/m2 [employer] Anna Marie Cosby [employer] Work Phone: 3(287)862-886026 [place] [address] 10-16-2023 09:57-0400 Body temperature 97.6 [degF] [employer] Anna Marie Cosby [employer] Work Phone: 5(150)757-429726 [place] [address] 10-16-2023 09:57-0400 Diastolic blood pressure 94 mm[Hg] [employer] Anna Marie Cosby [employer] Work Phone: 4(356)833-669226 [place] [address] 10-16-2023 09:57-0400 Heart rate 79 /min [employer] Anna Marie Cosby [employer] Work Phone: 5(894)419-552526 [place] [address] 10-16-2023 09:57-0400 Respiratory rate 22 /min [employer] Anna Marie Cosby [employer] Work Phone: 5(083)068-591526 [place] [address] 10-16-2023 09:57-0400 Systolic blood pressure 175 mm[Hg] [employer] Anna Marie Cosby [employer] Work Phone: 0(552)974-647826 [place] [address] 10-02-2023 10:08-0400 Body height 177.8 cm [employer] Anna Marie Cosby [employer] Work Phone: 7(063)630-972926 [place] [address] 10-02-2023 10:08-0400 Body weight 235.41 kg [employer] Anna Marie Cosby [employer] Work Phone: 8(498)[phone] [place] [address] Encounters Encounter Date Encounter Type Care Provider Facility Start: 01-29-2025 End: 01-29-2025 Patient encounter procedure [employer] Berenice Gant [facility] Work Phone: Start: 01-29-2025 End: 01-29-2025 ambulatory Anna Marie Cosby [employer] Work Phone: [facility] Start: 11-08-2024 End: 11-08-2024 ambulatory Anna Marie Cosyb [employer] Work Phone: [facility] Work Phone: Start: 11-08-2024 End: 11-08-2024 Patient encounter procedure Todbuallegra Fishman [employer] -Sleep Lab Work Phone: Start: 11-08-2024 End: 11-08-2024 ambulatory Anna Marie Zander VSC Facility:[facility] Start: 10-31-2024 End: 10-31-2024 Patient encounter procedure [facility] Anna Marie Zander [employer] -Outpatient Breast Imaging Work Phone: Start: 10-31-2024 End: 10-31-2024 ambulatory Anna Marie Zander C Facility:[facility] Start: 10-29-2024 End: 10-29-2024 ambulatory Anna Marie Cosby [facility] Facility:[facility] Start: 10-29-2024 End: 10-29-2024 Patient encounter procedure [employer] Berenice Gant [facility] Work Phone: Start: 09-13-2024 End: 09-13-2024 ambulatory Anna Marie Cosby [employer] Work Phone: [facility] Work Phone: Start: 09-13-2024 End: 09-13-2024 Patient encounter procedure [facility] Anna Marie Cosby [employer] -Sleep Lab Work Phone: Start: 09-13-2024 End: 09-13-2024 ambulatory Anna Marie Cosby VSC Facility:[facility] Start: 08-02-2024 End: 08-02-2024 ambulatory PHY WO ID REFERRING Facility:A Start: 08-02-2024 End: 08-02-2024 Patient encounter procedure PHY WO ID REFERRING [facility] Start: 04-03-2024 End: 04-03-2024 ambulatory [facility] Start: 04-03-2024 End: 04-03-2024 Office outpatient new 45 minutes George South MD Work Phone: [facility] Comment on above: Morbid obesity (HCC) (Primary Dx); Lipedema of lower extremity Start: 01-22-2024 End: 01-22-2024 ambulatory ANNA MARIE COSBY APRN-[employer] Facility:B Start: 11-01-2023 Telephone encounter [facility] Comment on above: Appointment Start: 10-31-2023 End: 10-31-2023 ambulatory [employer] Anna Marie Cosby [employer] Work Phone: [facility] Work Phone: Start: 10-31-2023 End: 10-31-2023 Patient encounter procedure [employer] Anna Marie Cosby [employer] Work Phone: [facility]-Outpatient Breast Imaging Work Phone: Start: 10-27-2023 Telephone encounter No One (Historic al) Referring Physician Comment on above: External Referrals/r esources Start: 10-16-2023 Non-patient / Non-visit COMPOSITION FLOOR LAYER-C Carlos A Cosby COMPOSITION FLOOR LAYER Work Phone: [facility] Start: 10-16-2023 End: 10-31-2023 ambulatory COMPOSITION FLOOR LAYER-C Anna Marie Cosby COMPOSITION FLOOR LAYER Work Phone: [facility] Work Phone: Start: 10-16-2023 End: 10-31-2023 Discharged Recurring COMPOSITION FLOOR LAYER-C Anna Marie Cosby COMPOSITION FLOOR LAYER Work Phone: [facility] Work Phone: Start: 10-02-2023 Non-patient / Non-visit COMPOSITION FLOOR LAYER-C Carlos A Cosby COMPOSITION FLOOR LAYER Work Phone: [facility] Start: 09-19-2023 End: 09-19-2023 ambulatory ANNA MARIE COSBY APRN-CLOTH PACKER Facility:B Start: 09-19-2023 End: 09-19-2023 Patient encounter procedure ANNA MARIE COSBY APRN-CLOTH PACKER [facility] Start: 10-15-2020 End: 10-15-2020 Patient encounter procedure GERBER ELENA [facility] Start: 09-18-2020 Patient encounter procedure GERBER ELENA [facility] Start: 09-16-2020 End: 09-16-2020 Patient encounter procedure GERBER ELENA [facility] Start: 08-17-2020 End: 08-17-2020 Emergency department patient visit ALVERTO LOPEZ [facility] Start: 08-17-2020 End: 08-17-2020 Emergency department patient visit ARRON ELENA [facility] Start: 08-22-2007 End: 08-22-2007 Patient encounter procedure Eliane Griffith Work Phone: [facility] Start: 08-22-2007 Results Only Eliane Griffith Work Phone: [facility] Procedures Date Procedure Procedure Detail Performing Clinician Start: 10-31-2024 Screening mammography Carlos A Cosby COMPOSITION FLOOR LAYER-C Work Phone: Start: 01-22-2024 Microscopic observat ion [Identifier] in Cervix by Cyto stain George South MD Work Phone: Start: 10-31-2023 End: 10-31-2023 Screening mammography COMPOSITION FLOOR LAYER-C Anna Marie faye COMPOSITION FLOOR LAYER Work Phone: Start: 08-17-2020 Urinalysis GERBER ESPANA Comment on above: Result Comment: URIN ALYSIS Performed By: #### 2 [id number] #### [facility],[address] [place] [address] Start: 08-22-2007 CONVERTED CYTOLOGY NON-WINDOWS CONSULTANT Eliane Griffith Work Phone: Start: 08-22-2007 CONVERTED SURGICAL PATHOLOGY Eliane Griffith Work Phone: section ANNA MARIE CAMPOS BANKING SUPERVISOR-CLOTH PACKER Comment on above: times 2 Plan of Treatment Date Care Activity Detail Author Start: 2040 RSV Immunization aged 60 or older (1 - 1-dose 60+ series) RSV Immunization aged 60 or older (1 - 1-dose 60+ series) [facility] Start: 2030 Zoster Vaccines (1 of 2) Zoster Vaccines (1 of 2) [facility] Start: 01-21-2027 Screening for malignant neoplasm of cervix [facility] Start: 10-30-2024 Screening for malignant neoplasm of breast Mammogram [facility] Start: 10-02-2024 End: 10-02-2024 Patient encounter procedure 10/02/2024 10:00 AM EDT Office Visit [facility] [address] [id number] George South MD [address] [place] [address] [facility] Start: 03-03-2024 COVID-19 Vaccine ( season) COVID-19 Vaccine ( season) [facility] Start: 03-03-2024 Influenza vaccination [facility] Start: 07-03-2023 Behavioral Health Screening Behavioral Health Screening [facility] Start: 03-03-2023 Covid-19 Vaccine ( season) Covid-19 Vaccine ( season) [facility] Start: 2020 Screening for malignant neoplasm of breast Mammogram Screening [facility] Start: 03-03-2020 Influenza vaccination INFLUENZA (#1) [facility] Start: 2010 HPV TESTING HPV TESTING [facility] Start: 2010 Screening for malignant neoplasm of cervix [facility] Start: 2001 PAP TESTING PAP TESTING [facility] Start: 2001 Screening for malignant neoplasm of cervix Pap Testing [facility] Start: 1999 DTaP/Tdap/Td Vaccines (1 - Tdap) DTaP/Tdap/Td Vaccines (1 - Tdap) [facility] Start: 1999 Hepatitis B Vaccine (1 of 3 - 19+ 3-dose series) Hepatitis B Vaccine (1 of 3 - 19+ 3-dose series) [facility] Start: 1999 Hepatitis B Vaccines (1 of 3 - 19+ 3-dose series) Hepatitis B Vaccines (1 of 3 - 19+ 3-dose series) [facility] Start: 1999 Urine microalbumin profile [facility] Start: 1998 Diabetes mellitus screening Diabetes Screening [facility] Start: 1998 HEPATITIS C SCREENING HEPATITIS C SCREENING [facility] Start: 1998 Hepatitis C screening Hepatitis C Screening [facility] Start: 1998 HIV SCREENING HIV SCREENING [facility] Start: 1998 HIV screening HIV Screening [facility] Start: 1992 Depression Screening Depression Screening [facility] Start: 1981 MMR Vaccines (1 of 1 - Standard series) MMR Vaccines (1 of 1 - Standard series) [facility] Start: 1980 HIV screening HIV Screening [facility] Start: 1980 Lipid panel Lipid Panel [facility] Start: 1980 Thyroid stimulating hormone measurement TSH Level [facility] Patient referral [facility] Work Phone: Immunizations Immunization Date Immunization Notes Care Provider Fa cili 06-08-2017 influenza virus vacc ine, unspecified formulation George South MD Work Phone: [facility] Payers Date Payer Category Payer Self-pay 2024 Unknown [id number] 2024 Unknown [id number] 2022 Unknown [id number] 2021 Medicaid [id number] 1980 Unknown [id number] 2.16.84 [id number] 1980 Unknown [id number] 2.16.84 [id number] 1980 Unknown [id number] 2.16.84 [id number] 1980 Unknown [id number] 2.16.84 [id number] 1980 Unknown [id number] 2.16.84 [id number] 1980 Unknown [id number] 2.16.8 [id number] 1980 Unknown [id number] 2.16.8 [id number] 1980 Unknown [id number] 2.16.8 [id number] Unknown [id number] 2.16.8 [id number] Unknown [id number] 2.16.8 [id number] Unknown [id number] 2.16.8 [id number] Unknown [id number] 2.16.8 [id number] Unknown [id number] 2.16.8 [id number] Social History Date Type Detail [facility] Start: 1980 Sex Assigned At Not on file [facility] Start: 04-03-2024 End: 10-29-2024 Tobacco smoking status Never smoked tobacco (finding) [facility] Start: 1980 Sex Assigned At Female A [facility] Start: 10-05-2023 [facility] smoking consumption unknown [facility] Gender identity Not on file [facility] Start: 04-03-2024 Tobacco use and exposure Smoke less tobacco non-user [facility] Start: 04-03-2024 Alcoholic beverage intake Lifetime non-drinker (finding) [facility] Start: 03-27-2024 Gender identity Identifies as female gender (finding) [facility] Start: 03-27-2024 Sexual orientation Bisexual (finding ) [facility] Sexual Orientation [facility] Start: 08-28-2019 End: 09-24-2024 Sex Female (finding) [facility] Clinical Notes 09-19-2023 to 10-29-2024 Note Date & Type Note Facility 10-29-2024 Evaluation note Diagnosis Onset Date Resolution Hypoxemia acute October 29 10:58am Morbid obesity with BMI of 70 and over, adult acute October 10:58am Obstructive sleep apnea acute A pril 2024 10:58am Lipedema of lower extremity chronic October 29, 2024 10:58am [facility] Work Phone: 1(612) 708-583104-29-2025 Evaluation note* Diagnosis Onset Date Resolution Status Admit Date Hypoxemia acute October 29 10:58am Morbid obesity with BMI of 7 0 and over, adult acute October 29, 2024 10:58am Obstructive sleep apnea acute A pril 2024 10:58am Lipedema of lower extremity chronic October 29, 2024 10:58am Cardiac murmur, unspecified acute January 29, 2025 11:07am Hypoxemia acute January 29 11:07am Morbid obesity with BMI of 7 0 and over, adult acute January 29, 2025 11:07am Obstructive sleep apnea acute J malcolm 2024 11:07am Lipedema of lower extremity chronic January 29, 2025 11:07am [facility] Work Phone: 1(484) 975-570110-02-2024 History of Present illness Narrative* George South MD - 04/03/2024 10:30 AM EDT Department of Plastic Surgery - Adult Attending Consult Note Reason for Consult: Severe lipedema Requesting Physician: Self-referral CHIEF COMPLAINT: Morbid obesity with severe lipedema History Obtained From: patient HISTORY OF PRESENT ILLNESS: The patient is a 43 y.o. female who presents with significant history of morbid obesity with a current Body mass index is 78.63 kg/m . Patient is presenting with extensive lipedema involving bilateral buttock area and the entire bilateral lower extremity which imposing significant weight burden on the patient causing bilateral knee and hip pain as well as lower back pain. This is also affecting her ability to walk and exercise. Patient is presenting today seeking surgical intervention in the form of liposuction/excision of her lipedema tissue of the bilateral thigh which is the area of current concern. Past Medical History: Past Medical History: Diagnosis Date Hypothyroidism Lipedema Past Surgical History: Past Surgical History: Procedure Laterality Date SECTION, CLASSIC x2 DILATION AND CURETTAGE OF UTERUS missed AB Current Medications: Current Outpatient Medications Medication Instructions Ibuprofen 400 mg, Oral levothyroxine (SYNTHROID, LEVOXYL) 100 mcg, Oral, Daily before breakfast nystatin (Mycostatin) 382864 UNIT/GM powder APPLY POWDER TOPICALLY TO AFFECTED AREA TWICE DAILY UNDER BILATERAL BREAST Allergies: Patient has no known allergies. Social History: Social History Socioeconomic History Marital status: Life Partner Spouse name: Not on file Number of children: Not on file Years of education: Not on file Highest education level: Not on file Occupational History Not on file Tobacco Use Smoking status: Never Smokeless tobacco: Never Substance and Sexual Activity Alcohol use: Never Drug use: Not on file Sexual activity: Not on file Other Topics Concern Not on file Social History Narrative Not on file Social Determinants of Health Financial Resource Strain: Not on file Food Insecurity: Not on file Transportation Needs: Not on file Physical Activity: Not on file Stress: Not on file Social Connections: Not on file Intimate Partner Violence: Not on file Housing Stability: Not on file Family History: No family history on file. REVIEW OF SYSTEMS: CONSTITUTIONAL: negative for fevers, chills, sweats and fatigue EYES: negative for dipolpia or acute vision loss. RESPIRATORY: negative for dry cough, cough with sputum, dyspnea, wheezing and chest pain CARDIOVASCULAR: negative for chest pain, dyspnea, palpitations, syncope GASTROINTESTINAL: negative for nausea, vomiting, change in bowel habits, diarrhea, constipation andabdominal pain EXTREMITIES: negative for edema MUSCULOSKELETAL: negative for muscle weakness SKIN: negative for itching or rashes. BEHAVIOR/PSYCH: negative for poor appetite, increased appetite, decreased sleep and poor concentration PHYSICAL EXAM: VITALS: BP 136/83 Pulse 71 Wt (!) 548 lb (249 kg) CONSTITUTIONAL: awake, alert, cooperative, no apparent distress, and appears stated age EYES: PERRLA, EOMI, no signs of occular infection LUNGS: No increased work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 Center Control Swelling with Leg Elevation -Person Taught Patient, Significant Other -Teaching Method Discussion -Response to teaching Verbalize understanding *Welcome to the Wound Center -Person Taught Patient, Significant Other -Teaching Method Discussion -Response to teaching Verbalize understanding Welcome to the Wound Care Center [place]an - Nurse 1 - General Ulcer Measurement Start: 10/02/23 09:58 Freq: Status: Active Protocol: Activity Type Activity Date Activity User E-sign Co-sign Detail Recorded Client Recorded Date Recorded By Document 10/02/23 10:08 [facility] Desktop 10/02/23 10:16 [facility] 10/02/23 10:08 Wound Center Nurse 1 Lower Limb Edema Present Yes Right Calf (cm) 86.5 Right Ankle (cm) 32.5 Left Calf (cm) 91 Left Ankle (cm) 35 - Nurse 2 - General Ulcer CM Notes Start: 10/02/23 09:58 Freq: Status: Active Protocol: Activity Type Activity Date Activity User E-sign Co-sign Detail Recorded Client Recorded Date Recorded By Document 10/02/23 10:39 Laptop 10/02/23 10:55 10/02/23 10:39 Pain Scale: 0-10 Numeric Is Patient Pain Free? Yes - Nurse 3 - General Ulcer D/C NN Start: 10/02/23 09:58 Freq: Status: Active Protocol: Activity Type Activity Date Activity User E-sign Co-sign Detail Recorded Client Recorded Date Recorded By Document 10/02/23 11:00 Laptop 10/02/23 11:00 10/02/23 11:00 Is Patient Pain Free? Yes - Visit Discharge Discharge Condition Stable Ambulatory Status Ambulatory Transportation Private Auto Medication Reconcilliation completed & Yes provided to patient/care provider Clinical Summary of Care Provided Yes Charges/Coding Visit Charges Office Visits / Consults: 96705 OV L4 Est 30min Assessment/Plan Assessment/Plan (1) Edema of both lower extremities: CODE(S): R60.0 - Localized edema (2) Lipedema of lower extremity: CODE(S): R60.0 - Localized edema (3) Morbid obesity with BMI of 70 and over, adult: CODE(S): E66.01 - Morbid (severe) obesity due to excess calories; Z68.45 -Body mass index [BMI] 70 or greater, adult (4) Intertrigo: CODE(S): L30.4 - Erythema intertrigo (5) Yeast infection of the skin: CODE(S): B37.2 - Candidiasis of skin and nail PLAN: Plan Patient evaluated at the wound healing center for lymphedema. I suspect that her bilateral lower extremity swelling is not caused by lymphedema due to the fact that her bilateral feet are not edematous. This most likely is related to lipedema. It starts at her buttocks/hips and goes to her ankles. She has never had vascular studies completed, so will order venous and arterial studies. Will not try any compression until vascular testing is obtained. For the intertrigo in the skin folds of her left leg and left knee, this looks like yeast, will start her on Nystatin cream. Instructed her to use the cream twice daily until the rash clears, plus 7 additional days. Phoned and spoke to Elina Keys OT. Will consider referring patient to her in the future, after vascular testing obtained. Lipedema is a very difficult issue to treat. We will start conservatively, but she may need to be referred to a tertiary center for further treatment. She will follow up after she has her vascular studies completed. 10/05/23 1601 <Electronically signed by Kady Marshall NP COMPOSITION FLOOR LAYER-C> Cosigner Signature (if applicable): CC: ~ Signed [facility] Work Phone: [phone]) 697-846403-19-2024 Evaluation + Plan note Diagnostic Tests Pending * Calcitriol(1,25 di-OH Vit D) 09/19/23 [facility] Evaluation note* Diagnosis Onset Date Resolution Status Edema of both lower extremities acute Intertrigo acute Lipedema of lower extremity acute Morbid obesity with BMI of 70 and over, adult acute Yeast infection of the skin acute [facility] Work Phone: Evaluation note* Diagnosis Morbid obesity (HCC)- Primary Morbid obesity Lipedema of lower extremity [facility] [place] noteNo assessment information availableWWood [facility] Hospital Work Phone: Hospital course Narrative No data available for this section [facility] Discharge instructions No data available for this section [facility] Progress note No data available for this section [facility] Reason for referral (narrative)* Consultation (Routine) - Pending Review Specialty Diagnoses / Procedures Referred By Shayla ward Referred To Contact Bariatrics Diagnoses Morbid obesity (HCC) Lipedema of lower extremity Procedures [place] OFFICE/OUTPATIENT NEW HIGH MDM 60 MINUTES George South MD [address] [place] [id number] [facility] [address] [place] [address] Referral ID Status Reason Start Date Expiration Date Visits Requested Visits Authorized [id number] Pending Review Specialty Services Required 04/03/2024 04/03/2025 1 1 [facility] for referral (narrative)No reason for referral information availableWWood County Hospital Work Phone: History of Past Illness Problem Noted Date Resolved Date Choledocholithiasis 09/17/2016 09/19/2016 Overview: CBD 7.1 mm on US Pain has RESOLVED Plan: - discharge with outpatient follow up with general surgery Advance Directives No Advanced Directives Records FoundDocuments on File Type Date Recorded Patient [facility] Expl anation Advance Directive(s) 09/17/2016 4:17 PM Summary Purpose Family History No Family History Records Found Relationship Condition Age at Onset Recorded Date/T jose father Diabetes mellitus Unknown Cardiac disease Unknown Hypertension Unknown Bipolar I disorder Unknown mother Diabetes mellitus Unknown Chronic obstructive pulmonary disease Unk nown Chief Complaint and Reason for Visit Chief Complaint WOUND WOUND WOUND SCREENING Reason for Visit Edema of both lower extremities Intertrigo Lipedema of lower extremity Morbid obesity with BMI of 70 and over, adult Yeast infection of the skin Chief Complaint Admit Date HYPERSOMNIA, HYPERTENSION September 13 7:59pm Chief Complaint Admit Date HYPERSOMNIA, HYPERTENSION September 13 7:59pm Sleep problems October 29, 2024 10: 58am SCREENING October 31, 2024 9:39am DIANA November 08, 2024 8:10pm Reason for Visit Admit Date Hypoxemia October 29, 2024 10: 58am Morbid obesity with BMI of 70 and over, adult October 29, 2024 10:58am Obstructive sleep apnea October 29, 2024 10:58am Lipedema of lower extremity October 29, 2024 10:58am Chief Complaint Admit Date Sleep problems October 29, 2024 10: 58am SCREENING October 31, 2024 9:39am DIANA November 08, 2024 8:10pm 3 M FU January 29, 2025 11:0 7am Reason for Visit Admit Date Hypoxemia October 29, 2024 10: 58am Morbid obesity with BMI of 70 and over, adult October 29, 2024 10:58am Obstructive sleep apnea October 29, 2024 10:58am Lipedema of lower extremity October 29, 2024 10:58am Cardiac murmur, unspecified January 29 025 11:07am Hypoxemia January 29, 2025 11:0 7am Morbid obesity with BMI of 70 and over, adult January 29, 2025 11:07am Obstructive sleep apnea January 29, 2025 11:07am Lipedema of lower extremity January 29 025 11:07am Additional Source Comments Source Comments (unrecognize d section and content) In the event this informatio n is protected by the Federal Confidentiality of Alcohol and Drug Abuse Patient Records regulations: The Federal rules restrict any use of the information to criminally investigate or prosecute any alcohol or drug abuse patient.[facility] the event this information is protected by the Federal Confidentiality of Alcohol and Drug Abuse Patient Records regulations: The Federal rules restrict any use of the information to criminally investigate or prosecute any alcohol or drug abuse patient.[facility] System[facility] the event this information is protected by the Federal Confidentiality of Alcohol and Drug Abuse Patient Records regulations: The Federal rules restrict any use of the information to criminally investigate or prosecute any alcohol or drug abuse patient.[facility] INFORMATION SOURCE (unrecogn ized section and content) DATE CREATED AUTHOR 09/18/2020 [facility] DATE CREATED AUTHOR AUTHOR'S ORGANIZ ATION 10/16/2020 [facility] DATE CREATED AUTHOR AUTHOR'S ORGANIZ ATION 01/24/2024 [facility] ([place]) DATE CREATED AUTHOR AUTHOR'S ORGANIZ ATION 02/02/2024 [facility] DATE CREATED AUTHOR AUTHOR'S ORGANIZ ATION 04/05/2024 [facility] DATE CREATED AUTHOR AUTHOR'S ORGANIZ ATION 09/15/2024 [facility] DATE CREATED AUTHOR AUTHOR'S ORGANIZ ATION [facility] team informatio n (unrecognized section and content) Team Status: Active Member Role Status Dates Anna Marie KARIMI, COMPOSITION FLOOR LAYER-C Primary Care Provider Activ e Team Status: Inactive Member Role Status Dates Anna Marie KARIMI, COMPOSITION FLOOR LAYER-C Primary Care Provider Activ e Start: September 13, 2024 End: September 13, 2024 Anna Marie Cosby VSC, COMPOSITION FLOOR LAYER-C Attending Provider Active Start: September 13, 2024 End: September 13, 2024 Anna Marie CARROLLC, COMPOSITION FLOOR LAYER-C Referring Provider Active Start: September 13, 2024 End: September 13, 2024 Cornetist Relationship Specialty Start Date End Date Linda Godoy MD PCP - General 06/03/09 Kady Marshall APRN.[employer] [address] [place] [address] Referring Family Medicine 10/19/23 Team Status: Active Member Role Status Dates Anna Marie Cosby COMPOSITION FLOOR LAYER, COMPOSITION FLOOR LAYER-C Primary Care Provider, Refer ring Provider Active Kady Marshall COMPOSITION FLOOR LAYER, COMPOSITION FLOOR LAYER-C Attending Provider, Other P kita Active Team Status: Active Member Role Status Dates Anna Marie Cosby COMPOSITION FLOOR LAYER, COMPOSITION FLOOR LAYER-C Primary Care Provider Active Kady Marshall COMPOSITION FLOOR LAYER, COMPOSITION FLOOR LAYER-C Attending Pro vider, Referring Provider, Other Provider Active Team Status: Inactive Member Role Status Dates Anna Marie Cosby COMPOSITION FLOOR LAYER, COMPOSITION FLOOR LAYER-C Primary Care Provider, Refer ring Provider Active Kady Marshall COMPOSITION FLOOR LAYER, COMPOSITION FLOOR LAYER-C Attending Provider Active Team Status: Active Member Role Status Dates Anna Marie Cosby VSC, COMPOSITION FLOOR LAYER-C Primary Care Provider, Attending Provider, Referring Provider Active Team Status: Inactive Member Role Status Dates Anna Marie Cosby VSC, COMPOSITION FLOOR LAYER-C Primary Care Provider, Attending Provider, Referring Provider Active Team Status: Inactive Member Role Status Dates Anna Marie Cosby VSC, COMPOSITION FLOOR LAYER-C Primary Care Provider Activ e Start: October 29, 2024 End: October 29, 2024 Anna Marie ACRROLLC, COMPOSITION FLOOR LAYER-C Referring Provider Active Start: October 29, 2024 End: October 29, 2024 Berenice Gant COMPOSITION FLOOR LAYER-C Attending Provider Active Start: October 29, 2024 End: October 29, 2024 Team Status: Inactive Member Role Status Dates Anna Marie Cosby VSC, COMPOSITION FLOOR LAYER-C Primary Care Provider Activ e Start: October 31, 2024 End: October 31, 2024 Anna Marie Cosby VSC, COMPOSITION FLOOR LAYER-C Attending Provider Active Start: October 31, 2024 End: October 31, 2024 Anna Marie Cosby VSC, COMPOSITION FLOOR LAYER-C Referring Provider Active Start: October 31, 2024 End: October 31, 2024 Team Status: Inactive Member Role Status Dates Anna Marie Zander VSC, COMPOSITION FLOOR LAYER-C Primary Care Provider Activ e Start: November 08, 2024 End: November 08, 2024 Todbulucole Beam VSC, COMPOSITION FLOOR LAYER-C Attending Provider Active Start: November 08, 2024 End: November 08, 2024 Todbulucole Beam VSC, COMPOSITION FLOOR LAYER-C Referring Provider Active Start: November 08, 2024 End: November 08, 2024 Berenice Gant COMPOSITION FLOOR LAYER-C Other Provider Active St art: November 08, 2024 End: November 08, 2024 Team Status: Active Member Role/Relationship Status Dates Anna Marie Zander VSC, COMPOSITION [employer] Primary Care Provider Activ e Team Status: Inactive Member Role/Relationship Status Dates Anna Marie Zander VSC, [employer]ITION [employer] Primary Care Provider Activ e Start: October 29, 2024 End: October 29, 2024 Anna Marie Cosby VSC, [employer]POSITION [employer] Referring Provider Active Start: October 29, 2024 End: October 29, 2024 Berenice Gant [employer] Attending Provider Active Start: October 29, 2024 End: October 29, 2024 Team Status: Inactive Member Role/Relationship Status Dates Anna Marie Zander VSC, COMPOSITION [employer]-C Primary Care Provider Activ e Start: October 31, 2024 End: October 31, 2024 Anna Marie Cosby VSC, COMPOSITION [employer]-C Attending Provider Active Start: October 31, 2024 End: October 31, 2024 Anna Marie Cosby VSC, [employer]POSITION [employer] Referring Provider Active Start: October 31, 2024 End: October 31, 2024 Team Status: Inactive Member Role/Relationship Status Dates Anna Marie Zander VSC, [employer]POSITION [employer] Primary Care Provider Activ e Start: November 08, 2024 End: November 08, 2024 Todbuallegra Beam VSC, COMPOSITION [employer]-C Attending Provider Active Start: November 08, 2024 End: November 08, 2024 Zebulun Beam VSC, COMPOSITION [employer] Referring Provider Active Start: November 08, 2024 End: November 08, 2024 MERLYN Sutton Other Provider Active St art: November 08, 2024 End: November 08, 2024 Team Status: Inactive Member Role/Relationship Status Dates MERLYN Moran Primary Care Provider Activ e Start: January 29, 2025 End: January 29, 2025 MERLYN Moran Referring Provider Active Start: January 29, 2025 End: January 29, 2025 MERLYN Sutton Attending Provider Active Start: January 29, 2025 End: January 29, 2025 Reason for Visit (unrecogniz ed section and content) Reason Comments External Referrals/resources Reason Comments Appointment Reason Comments New Patient Lymphedema Goals (unrecognized section and content) Goals may be documented in a n alternate section FOR RECORDS PERTAINING TO PATIENTS WHO ARE OR HAVE BEEN ENROLLED IN A CHEMICAL DEPENDENCY/SUBSTANCEABUSE PROGRAM, SOME INFORMATION MAY BE OMITTED. This clinical summary was aggregated from multiple sources. Caution should be exercised in using it in the provision of clinical care. This summary normalizes information from multiple sources, and as a consequence, information in this document may materially change the coding, format and clinical context of patient data. In addition, data may be omitted in some cases. CLINICAL DECISIONS SHOULD BE BASED ON THE PRIMARY CLINICAL RECORDS. [employer] provides no warranty or guarantee of the accuracy or completeness of information in this document.
== END | disposition home or self-care (01) ==
LOC: VSLAB 10:13
PROVIDERS: PCP Nurse Practitioner Family; Visit Provider Family Medicine
DX: E03.9 Hypothyroidism, unspecified (principal); E66.01 Morbid (severe) obesity due to excess calories; E78.2 Mixed hyperlipidemia; R01.1 Cardiac murmur, unspecified
CPT/HCPCS: 36415; 80053; 80061; 83036; 83735; 84439; 84443; 85025

== ENCOUNTER → 2025-02-26 | Outpatient (CLI) | payer MEDICAID, SELFPAY ==
--- NOTE | 2025-02-26 10:43 | ECHOCS_ITS ---
Reason For Study Reason For Study: MURMUR Procedure This was a 2D Doppler, Color Flow transthoracic echocardiogram. Contrast injection was performed. D/T suboptimal imaging windows/body habitus. Exam performed in department. Left Ventricle Normal LV size. Left ventricular systolic function is normal. The left ventricular ejection fraction is 65 %. No regional wall motion abnormalities noted. Right Ventricle Normal RV size. Normal systolic function. Atria The left atrium is mildly enlarged. Normal right atrium. Mitral Valve Normal mitral valve. Tricuspid Valve Normal tricuspid valve. Mild tricuspid valve insufficiency. Aortic Valve Trisinus/trileaflet aortic valve. Mild focal aortic valve calcification. Peak aortic valve gradient 24 mmHg. Mean aortic valve gradient 12 mmHg. Pulmonic Valve Normal pulmonic valve. Great Vessels Normal aortic root. The pulmonary artery is normal size. Inferior vena cava collapse with respiration. Pericardium/Pleural No pericardial effusion. MMode/2D Measurements & Calculations LVIDd: 5.1 cm IVSd: 1.1 cm LVOT diam: 2.1 cm LVIDs: 3.6 cm LVPWd: 1.1 cm LVOT area: 3.6 cm2 RVDd: 3.9 cm FS: 30.6 % CO(Teich): 6.3 l/min Ao root diam: 3.3 cm LAV(MOD- bp): 92.7 ml LAV(MOD- bp) Indexed: 28.9 ml/m2 LAV(MOD- sp2): 91.2 ml LAV(MOD- sp4): 86.6 ml CO(MOD- sp4): 10.6 l/min LVAd ap4: 46.7 cm2 LVAd ap2: 37.1 cm2 SV(MOD- sp4): 123.1 ml LVLd ap4: 9.7 cm LVLd ap2: 9.9 cm EDV(MOD-sp4): 183.6 ml EDV(MOD-sp2): 113.2 ml SI(MOD- sp4): 38.4 ml/m2 EDV(sp4-el): 191.2 ml EDV(sp2-el): 118.2 ml LVAs ap4: 23.6 cm2 LVAs ap2: 19.5 cm2 LVLs ap4: 7.9 cm LVLs ap2: 7.8 cm ESV(MOD-sp4): 60.5 ml ESV(MOD-sp2): 40.9 ml ESV(sp4-el): 60.4 ml ESV(sp2-el): 41.3 ml EF(MOD-sp4): 67.0 % EF(MOD-sp2): 63.9 % EF(sp4-el): 68.4 % SV(MOD-sp2): 72.4 ml SV(sp4-el): 130.8 ml LA A4 area: 24.4 cm2 SI(MOD-sp2): 22.6 ml/m2 LA dimension(2D): 4.4 cm TAPSE: 3.1 cm RA A4 area: 19.5 cm2 Time Measurements MV dec time: 0.17 sec Doppler Measurements & Calculations MV E max everton: 114.4 cm/sec Lat Peak E' Everton: 19.5 cm/sec Med Peak E' Everton: 14.8 cm/sec MV A max everton: 106.6 cm/sec E/E' lat: 5.9 E/E' med: 7.7 MV E/A: 1.1 MV V2 max: 129.4 cm/sec MV P1/2t max everton: 112.2 cm/sec Ao V2 max: 247.3 cm/sec MV max P.7 mmHg MV P1/2t: 53.5 msec Ao max P.5 mmHg MV V2 mean: 83.6 cm/sec MV dec slope: 614.2 cm/sec2 Ao V2 mean: 163.5 cm/sec MV mean P.1 mmHg Ao mean P.0 mmHg MV V2 VTI: 28.1 cm MVA(P1/2t): 4.1 cm2 Ao V2 VTI: 49.2 cm MVA(VTI): 3.8 cm2 AV (velocity ratio): 0.60 ROBB(I,D): 2.2 cm2 ROBB(V,D): 2.0 cm2 LV V1 max: 134.5 cm/sec CO(LVOT): 9.4 l/min PA V2 max: 128.0 cm/sec LV V1 max P.2 mmHg SV(LVOT): 106.8 ml PA V2 mean: 90.0 cm/sec LV V1 mean P.5 mmHg LV V1 mean: 102.8 cm/sec LV V1 VTI: 29.6 cm TR max everton: 187.0 cm/sec TR max P.0 mmHg ECHO/Echo Complete W/ Contrast Interpretation Summary Normal LV size. Left ventricular systolic function is normal. The left ventricular ejection fraction is 65 %. Mild focal aortic valve calcification. Mean aortic valve gradient 12 mmHg. Contrast injection was performed. Ordering Physician: Shanda Reyes Referring Physician: Shanda Reyes Performed By: Martha Weir, TANMAY, RVT
== END | disposition home or self-care (01) ==
LOC: CVS 10:41
PROVIDERS: PCP Nurse Practitioner Family; Referring Provider Family Medicine; Visit Provider Family Medicine
DX: R01.1 Cardiac murmur, unspecified (principal)
CPT/HCPCS: 93306; Q9957; A4216; C8929